=== PATIENT | female | born 1985 | race Caucasian/White ===

== ENCOUNTER 2020-08-26 03:31 | Emergency (ER) | payer OTHER, SELFPAY ==
[2020-08-26] MEDS ORDERED: NA CHLORIDE 0.9% 2,000 ML ONE (04:21)
[2020-08-26] MEDS ORDERED: ACETAMINOPHEN 325 MG TABLET ONE (04:21)
[2020-08-26] MEDS ORDERED: ONDANSETRON 4 MG/2 ML VIAL ONE (04:26)
[2020-08-26 04:29] LABS: Absolute Lymphocytes (CBC) 0.8 K/uL (0.7-4.9); Basophils % 0.2 % (0-1.3); Lymphocytes % 4.6 % (15.3-44.8); MPV 7.6 fL (7.6-11.3); RBC Red Blood Cell Count 4.62 M/uL (3.86-4.86)
[2020-08-26 04:31] LABS: Protime INR 1.22
[2020-08-26 05:14] LABS: Urine Blood 2+ (NEG); Urine Glucose NEGATIVE (NEG); Urine Protein 2+ (NEG); Urine Specific Gravity >1.030 (1.005-1.030); Urine pH 5.5 (5.0-7.0)
[2020-08-26] MEDS ORDERED: MORPHINE 2 MG/ML SYR ONE (05:55)
[2020-08-26 06:19] LABS: SARS-COV-2 RT PCR NEGATIVE (NEGATIVE)
[2020-08-26] MEDS ORDERED: CLINDAMYCIN 600MG/D5W 600 MG/50 ML BAG IV ONE (06:24)
[2020-08-26] MEDS ORDERED: dexAMETHasone 10 MG/ML VIAL ONE (06:24)
[2020-08-26 07:16] LABS: ALT/SGPT 25 U/L (12-78); AST/SGOT 16 U/L (15-37); Alkaline Phosphatase 95 U/L (45-117); Amylase 23 U/L (25-115); BUN Blood Urea Nitrogen 6 mg/dL (7-18); Bicarbonate 22 mmol/L (21-32); Bilirubin Direct 0.1 mg/dL (0-0.2); Bilirubin Total 0.3 mg/dL (0.2-1.0); CKMB Creatine Kinase MB < 1.0 ng/mL (0.3-3.6); Creatine Phosphokinase 49 U/L (26-192); Glucose Level 90 mg/dL (74-106); Lipase 43 U/L (73-393); Potassium 3.4 mmol/L (3.5-5.1); Protein, Total 6.4 g/dL (6.4-8.2); Sodium Level 139 mmol/L (136-145); Troponin (Emerg Dept Use Only) < 0.02 ng/mL (0.0-0.045)
--- NOTE | 2020-08-26 08:25 | RAD REPORT ---
EXAM DESCRIPTION: CT - Soft Tissue Neck W/Contr - 08/26/2020 7:42 am CLINICAL HISTORY: SORE THROAT, neck pain, fever COMPARISON: No comparisons TECHNIQUE: During dynamic enhancement using 100 milliliters nonionic IV contrast, axial 5 millimeter thick images of the neck were obtained. All CT scans are performed using dose optimization technique as appropriate and may include automated exposure control or mA/KV adjustment according to patient size. FINDINGS: Intracranial portion the examination is unremarkable. No globe or orbital content abnormal ity. Mastoid air cells are clear. No significant paranasal sinus finding. A low-density collection is present at the left tonsil extending inferiorly in the left posterior pha ryngeal soft tissues. Low-density collection extends into the left side of the epiglottis and involve s the left vallecula and pyriform sinus. This collection measures 5 cm in craniocaudal dimension with transverse diameter is up to 16 mm. There is mass effect displacing the left-side tonsil into the or opharyngeal airway. No significant luminal narrowing noted. No vocal cord abnormality seen. The peritonsillar low-density collection is not well defined but like ly represents a combination of abscess and phlegmonous material. No vascular abnormality. The parotid, submandibular and thyroid gland tissues are uninvolved. Patient has numerous small enhancing reactive cervical lymph nodes. No necrotic or abscessed lymph node iden tified. Largest lymph node is approximately 17 mm. No bony abnormality seen. IMPRESSION: Large 5 centimeter CC x 1.6 cm TR peritonsillar abscess extending inferiorly in the left posterior pharyngeal soft tissues to the level of the vallecula and pyriform sinus on the left.
--- NOTE | 2020-08-26 08:56 | EDPHYS ---
Physician Documentation [facility] Name: Inez Hernandez Age: 34 yrs Sex: Female : 1985 Arrival Date: 08/26/2020 Time: 03:32 Bed 18 Private MD: ED Physician Tyshawn Poe HPI: 08/26 04:54 This 34 yrs old Female presents to ER via Wheelchair with complaints of mh7 dehydration. 04:55 The patient presents with sore throat. The patient describes throat pain as constant. mh7 Onset: The symptoms/episode began/occurred 2 day(s) ago. Severity of symptoms: At their worst the symptoms were moderate, yesterday, in the emergency department the symptoms are unchanged. Modifying factors: The symptoms are alleviated by nothing, the symptoms are aggravated by nothing, Patient's oral intake status: limited fluid intake, Denies contact with similarly ill indivduals. Associated signs and symptoms: Pertinent positives: cough, nausea, Sore throat Pertinent negatives chest pain, chills, diarrhea, earache, fever, headache, rhinorrhea, shortness of breath, vomiting. 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 - Social history:: Smoking status: Patient reports the use of cigarette tobacco products. ROS: 04:55 Constitutional: Negative for fever, chills, and weight loss, Eyes: Negative for injury, mh7 pain, redness, and discharge, Neck: Negative for injury, pain, and swelling, Cardiovascular: Negative for chest pain, palpitations, and edema, : Negative for injury, bleeding, discharge, and swelling, MS/Extremity: Negative for injury and deformity, Skin: Negative for injury, rash, and discoloration, Neuro: Negative for headache, weakness, numbness, tingling, and seizure, Psych: Negative for depression, anxiety, suicide ideation, homicidal ideation, and hallucinations, Allergy/Immunology: Negative for hives, rash, and allergies, Endocrine: Negative for neck swelling, polydipsia, polyuria, polyphagia, and marked weight changes, Hematologic/Lymphatic: Negative for swollen nodes, abnormal bleeding, and unusual bruising. Exam: 04:55 Head/Face: Normocephalic, atraumatic. Eyes: Pupils equal round and reactive to light, mh7 extra-ocular motions intact. Lids and lashes normal. Conjunctiva and sclera are non-icteric and not injected. Cornea within normal limits. Periorbital areas with no swelling, redness, or edema. Neck: Trachea midline, no thyromegaly or masses palpated, and no cervical lymphadenopathy. Supple, full range of motion without nuchal rigidity, or vertebral point tenderness. No Meningismus. Chest/axilla: Normal chest wall appearance and motion. Nontender with no deformity. No lesions are appreciated. 04:55 Respiratory: Lungs have equal breath sounds bilaterally, clear to auscultation and percussion. No rales, rhonchi or wheezes noted. No increased work of breathing, no retractions or nasal flaring. Abdomen/GI: Soft, non-tender, with normal bowel sounds. No distension or tympany. No guarding or rebound. No evidence of tenderness throughout. Back: No spinal tenderness. No costovertebral tenderness. Full range of motion. Skin: Warm, dry with normal turgor. Normal color with no rashes, no lesions, and no evidence of cellulitis. MS/ Extremity: Pulses equal, no cyanosis. Neurovascular intact. Full, normal range of motion. Neuro: Awake and alert, GCS 15, oriented to person, place, time, and situation. Cranial nerves II-XII grossly intact. Motor strength 5/5 in all extremities. Sensory grossly intact. Cerebellar exam normal. Normal gait. Psych: Awake, alert, with orientation to person, place and time. Behavior, mood, and affect are within normal limits. 04:55 Constitutional: The patient appears in no acute distress, alert, awake, uncomfortable. 04:55 Cardiovascular: Rate: tachycardic, Rhythm: regular, Pulses: no pulse deficits are appreciated, Heart sounds: normal, normal S1and S2, Edema: is not appreciated. 06:51 ENT: External ear(s): are unremarkable, Nose: is normal, Mouth: is normal, Posterior mh7 pharynx: Airway: patent, Tonsils: bilaterally enlarged, with erythema, with exudate, Uvula: normal, swelling, that is mild, erythema, that is moderate, exudate, that is moderate, peritonsillar mass, is not appreciated, pooling of secretions, is not appreciated, Dental exam: normal, Voice: is normal, Breath odor: is normal. Vital Signs: 03:51 BP 132 / 86; Pulse 116; Resp 20; Temp 102.1; Pulse Ox 100% ; Weight 58.97 kg; Height 5 wh ft. 0 in. (152.40 cm); 06:14 BP 127 / 80; Pulse 116; Resp 18; Temp 99.8; Pulse Ox 100% on R/A; wh 07:05 BP 119 / 78; Pulse 108; Resp 17; Temp 98.1; Pulse Ox 98% ; Pain 6/10; rb3 08:05 BP 123 / 76; Pulse 90; Resp 18; Pulse Ox 100% ; rb3 09:50 BP 123 / 76; Pulse 89; Resp 16; Temp 98.9; Pulse Ox 99% ; rb3 10:50 BP 107 / 57; Pulse 89; Resp 17; Pulse Ox 99% ; rb3 03:51 Body Mass Index 25.39 (58.97 kg, 152.40 cm) MDM: 07:05 Patient medically screened. rn 08:53 ED course: Pt with large peritonsillar abscess, extends inferiorly, not accessible on rn exam to be drained in ER, no ENT here, will transfer for ENT drainage. . 08:55 Differential diagnosis: group A strep tonsillitis, peritonsillar abscess pharyngitis. rn Data reviewed: vital signs, nurses notes, lab test result(s), radiologic studies, CT scan, and as a result, I will admit patient. Counseling: I had a detailed discussion with the patient and/or guardian regarding: the historical points, exam findings, and any diagnostic results supporting the discharge/admit diagnosis, lab results, radiology results, the need to transfer to another facility, [facility] does not immediately have the required specialist. Response to treatment: There is no appreciated change of the patient's symptoms at this time, and as a result, I will admit patient. 08/26 03:55 Order name: Amylase, Serum [facility] 08/26 03:55 Order name: Basic Metabolic Panel [facility] 08/26 03:55 Order name: Blood Culture Adult (2) 08/26 03:55 Order name: CBC with Diff; Complete Time: 05:20 08/26 03:55 Order name: Ckmb 08/26 03:55 Order name: CPK 08/26 03:55 Order name: Lactate; Complete Time: 05:20 08/26 03:55 Order name: LFT's; Complete Time: 07:21 08/26 03:55 Order name: Lipase; Complete Time: 07:21 08/26 03:55 Order name: Procalcitonin; Complete Time: 05:20 08/26 03:55 Order name: Protime (+inr); Complete Time: 05:20 08/26 03:55 Order name: Ptt, Activated; Complete Time: 05:20 08/26 03:55 Order name: Troponin (emerg Dept Use Only); Complete Time: 07:21 08/26 03:55 Order name: Chest Single View XRAY; Complete Time: 19:22 08/26 03:55 Order name: Rapid Strep; Complete Time: 06:02 08/26 03:55 Order name: Harrison Screen Profile; Complete Time: 06:45 08/26 03:56 Order name: Amylase; Complete Time: 07:21 EDMS 08/26 03:56 Order name: Basic Metabolic Panel; Complete Time: 07:21 EDMS 08/26 03:57 Order name: CKMB Creatine Kinase MB; Complete Time: 07:21 EDMS 08/26 03:57 Order name: Creatine Phosphokinase; Complete Time: 07:21 EDMS 08/26 04:35 Order name: Glucose, Ancillary Testing; Complete Time: 05:20 EDMS 08/26 05:07 Order name: Urine --Ancillary (enter results); Complete Time: 05:20 tt3 08/26 05:07 Order name: Urine Dipstick--Ancillary (enter results); Complete Time: 05:20 tt3 08/26 06:19 Order name: COVID-19/FLU A+B; Complete Time: 06:45 EDMS 08/26 06:51 Order name: CT Soft Tissue Neck W/contr; Complete Time: 08:47 7 08/26 03:55 Order name: Accucheck; Complete Time: 04:19 08/26 03:55 Order name: Cardiac monitoring; Complete Time: 04:19 08/26 03:55 Order name: EKG - Nurse/Tech; Complete Time: 04:19 08/26 03:55 Order name: IV Saline Lock - Large Bore; Complete Time: 04:19 08/26 03:55 Order name: Labs collected and sent; Complete Time: 04:19 08/26 03:55 Order name: O2 Per Protocol; Complete Time: 04:08/26 03:55 Order name: O2 Sat Monitoring; Complete Time: 04:08/26 03:55 Order name: Urine Dipstick-Ancillary (obtain specimen); Complete Time: 05:07 7 Administered Medications: 04:18 Drug: NS 0.9% (30 ml/kg) 30 ml/kg Route: IV; Rate: bolus; Site: right antecubital; 06:44 Follow up: Response: No adverse reaction; IV Status: Completed infusion 04:18 Drug: Zofran (Ondansetron) 4 mg Route: IVP; Site: right antecubital; 05:06 Follow up: Response: No adverse reaction 04:37 Drug: Tylenol 650 mg Route: PO; 06:13 Follow up: Response: No adverse reaction; Temperature is decreased 05:42 Drug: morphine 2 mg {Note: RASS 0.} Route: IVP; Site: right antecubital; 06:13 Follow up: Response: No adverse reaction; Pain is decreased; RASS: Alert and Calm (0) 06:12 Drug: Decadron - Dexamethasone 10 mg Route: IVP; Site: right antecubital; 06:43 Follow up: Response: No adverse reaction 06:14 Drug: Clindamycin 600 mg Route: IVPB; Infused Over: 30 mins; Site: right antecubital; 06:43 Follow up: Response: No adverse reaction; IV Status: Completed infusion Disposition: 08/26/20 08:56 Transfer ordered to [facility]. Diagnosis are Peritonsillar abscess, Streptococcal tonsillitis. - Reason for transfer: Higher level of care. - Accepting physician is . - Condition is Stable. - Problem is new. - Symptoms are unchanged. Signatures: Dispatcher [employer] EDMS Tyshawn Poe MD MD rn Habalo, Winsy wh Holmes, Maurice, MD MD mh7 Sally Muñoz, RN RN rb3 Corrections: (The following items were deleted from the chart) 05:19 03:57 Influenza Screen (A \T\ B)+BA.LAB.BRZ ordered. EDMS EDMS 05:20 05:06 CORONAVIRUS+MR.LAB.BRZ ordered. EDMS EDMS 10:56 08:56 08/26/2020 08:56 Transfer ordered to [facility]. rb3 Diagnosis is Peritonsillar abscess; Streptococcal tonsillitis. Reason for transfer: Higher level of care. Accepting physician is . Condition is Stable. Problem is new. Symptoms are unchanged. rn
--- NOTE | 2020-08-26 08:56 | ER ---
Nurse's Notes [facility] Name: Inez Hernandez Age: 34 yrs Sex: Female : 1985 Arrival Date: 08/26/2020 Time: 03:32 Bed 18 Private MD: Diagnosis: Peritonsillar abscess;Streptococcal tonsillitis Presentation: 08/26 03:51 Chief complaint: Patient states: sore throat, nausea, back pain, fever for 2 days. Coronavirus screen: Client denies travel out of the [place] in the last 14 days. fever, headache, nausea, sore throat, Client presents with at least one sign or symptom that may indicate coronavirus-19. Standard/surgical mask placed on the client. Provider contacted for isolation considerations. Ebola Screen: Patient negative for fever greater than or equal to 101.5 degrees Fahrenheit, and additional compatible Ebola Virus Disease symptoms Patient denies exposure to infectious person. Initial Sepsis Screen: Does the patient meet any 2 criteria? Temp <36.0*C (96.8*F)) or > 38.3*C (100.9*F). HR > 90 bpm. Does the patient have a suspected source of infection? Yes: Other: Sore throat. Risk Assessment: Do you want to hurt yourself or someone else? Patient reports no desire to harm self or others. Onset of symptoms was August 26, 2020. 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 - Social history:: Smoking status: Patient reports the use of cigarette tobacco products. Screenin:54 Abuse screen: Denies threats or abuse. Denies injuries from another. Nutritional screening: No deficits noted. Tuberculosis screening: No symptoms or risk factors identified. Fall Risk None identified. Assessment: 04:19 General: Appears in no apparent distress. uncomfortable, Behavior is appropriate for age, crying. Pain: Complains of pain in sore throat. Neuro: Level of Consciousness is awake, alert, obeys commands, Oriented to person, place, time, situation, Appropriate for age. Cardiovascular: Capillary refill < 3 seconds. Respiratory: Airway is patent Respiratory effort is even, unlabored, Respiratory pattern is regular, symmetrical. GI: Abdomen is flat, non-distended. GI: Reports nausea. : No signs and/or symptoms were reported regarding the genitourinary system. EENT: Throat is reddened. Derm: Skin is intact, is healthy with good turgor, Skin is pink, warm \T\ dry. normal. Musculoskeletal: Circulation, motion, and sensation intact. 06:14 Reassessment: Patient appears in no apparent distress at this time. No changes from wh previously documented assessment. Patient and/or family updated on plan of care and expected duration. Pain level reassessed. Patient is alert, oriented x 3, equal unlabored respirations, skin warm/dry/pink. Patient states feeling better. Patient states symptoms have improved. 07:05 General: Appears in no apparent distress. Behavior is calm, cooperative. Pain: rb3 Complains of pain in throat Pain currently is 6 out of 10 on a pain scale. Neuro: Level of Consciousness is awake, alert, obeys commands, Oriented to person, place, time, situation. Cardiovascular: Patient's skin is warm and dry. Respiratory: Airway is patent Respiratory effort is even, unlabored, Respiratory pattern is regular, symmetrical. Musculoskeletal: Range of motion: intact in all extremities. 08:05 Reassessment: Patient appears in no apparent distress at this time. No changes from rb3 previously documented assessment. 09:00 Reassessment: Pt. resting with eyes closed, respirations even, unlabored. rb3 09:50 Reassessment: Patient appears in no apparent distress at this time. Patient and/or rb3 family updated on plan of care and expected duration. Pain level reassessed. Patient is alert, oriented x 3, equal unlabored respirations, skin warm/dry/pink. 09:55 Reassessment: Gave report to BRANDI Proctor at [facility]. Information from the [facility] was rb3 given. All questions asked and answered. 10:52 Reassessment: Patient appears in no apparent distress at this time. Patient and/or rb3 family updated on plan of care and expected duration. Pain level reassessed. Patient is alert, oriented x 3, equal unlabored respirations, skin warm/dry/pink. Gave report to [facility]. Information from the SB[facility] was given. All questions asked and answered. Vital Signs: 03:51 BP 132 / 86; Pulse 116; Resp 20; Temp 102.1; Pulse Ox 100% ; Weight 58.97 kg; Height 5 wh ft. 0 in. (152.40 cm); 06:14 BP 127 / 80; Pulse 116; Resp 18; Temp 99.8; Pulse Ox 100% on R/A; wh 07:05 BP 119 / 78; Pulse 108; Resp 17; Temp 98.1; Pulse Ox 98% ; Pain 6/10; rb3 08:05 BP 123 / 76; Pulse 90; Resp 18; Pulse Ox 100% ; rb3 09:50 BP 123 / 76; Pulse 89; Resp 16; Temp 98.9; Pulse Ox 99% ; rb3 10:50 BP 107 / 57; Pulse 89; Resp 17; Pulse Ox 99% ; rb3 03:51 Body Mass Index 25.39 (58.97 kg, 152.40 cm) ED Course: 03:32 Patient arrived in ED. am2 03:40 Regina Flores is Primary Nurse. 03:41 Nishant Delgado MD is Attending Physician. [facility] 03:54 Triage completed. 03:54 Patient has correct armband on for positive identification. Bed in low position. Call light in reach. Side rails up X 1. Pulse ox on. NIBP on. 03:55 Arm band placed on right wrist. 04:15 EKG done, by ED staff, reviewed by Nishant Delgado MD. Inserted saline lock: 18 gauge in ds4 right antecubital area, using aseptic technique. Blood collected. 04:47 Chest Single View XRAY In Process Unspecified. EDMS 07:05 Attending Physician role handed off by Nishant Delgado MD rn 07:05 Tyshawn Poe MD is Attending Physician. rn 07:42 CT Soft Tissue Neck W/contr In Process Unspecified. EDMS 08:56 initiated a transfer with Lupillo Iglesias Rn from the [facility]. eb 09:08 connected the ENT secured entrance monitor for [facility] with Dr. Poe for patient transfer eb consultation. 09:[address] Mueller the hospitalist secured entrance monitor for [facility] with Dr. Poe for eb patient transfer consultation. 09:29 administrative approval given by Lupillo Iglesias Rn/ patient has been accepted to [facility] rm 1618/ Dr. Mueller has accepted the patient in transfer/ report to be called to [phone]. 10:55 No provider procedures requiring assistance completed. Patient transferred, IV remains rb3 in place. Administered Medications: 04:18 Drug: NS 0.9% (30 ml/kg) 30 ml/kg Route: IV; Rate: bolus; Site: right antecubital; 06:44 Follow up: Response: No adverse reaction; IV Status: Completed infusion 04:18 Drug: Zofran (Ondansetron) 4 mg Route: IVP; Site: right antecubital; 05:06 Follow up: Response: No adverse reaction 04:37 Drug: Tylenol 650 mg Route: PO; 06:13 Follow up: Response: No adverse reaction; Temperature is decreased 05:42 Drug: morphine 2 mg {Note: RASS 0.} Route: IVP; Site: right antecubital; 06:13 Follow up: Response: No adverse reaction; Pain is decreased; RASS: Alert and Calm (0) 06:12 Drug: Decadron - Dexamethasone 10 mg Route: IVP; Site: right antecubital; 06:43 Follow up: Response: No adverse reaction 06:14 Drug: Clindamycin 600 mg Route: IVPB; Infused Over: 30 mins; Site: right antecubital; 06:43 Follow up: Response: No adverse reaction; IV Status: Completed infusion Outcome: 08:56 ER care complete, transfer ordered by rn 10:55 Transferred by ground EMS to [facility], Transfer form completed. rb3 10:55 Condition: stable 10:55 Instructed on the need for admit. 10:56 Patient left the ED. rb3 Signatures: Dispatcher [employer] EDTyshawn Goetz MD MD rn Swanson, Donovan ds4 Moreno, Amanda am2 Habalo, Winsy Yana Stiles Maurice, MD MD mh7 Sally Muñoz RN RN rb3 Corrections: (The following items were deleted from the chart) 06:14 04:19 General: [facility]
--- NOTE | 2020-08-26 09:29 | RAD REPORT ---
EXAM DESCRIPTION: RAD - Chest Single View - 08/26/2020 4:47 am CLINICAL HISTORY: COUGH, fever COMPARISON: None TECHNIQUE: AP portable chest image was obtained 08/26/2020 4:47 am . FINDINGS: Lungs are underinflated. No dense mass or consolidation. Hazy left base opacification is p robably atelectasis. Left base pneumonia is unlikely. Heart and vasculature are normal. No measurable pleural effusion and no pneumothorax. No acute bony abnormality seen. No acute aortic findings suspe cted. IMPRESSION: No acute cardiopulmonary process. Hazy opacification left base is probably shallow inspiration artifact. Pneumonia is unlikely but can be correlated with clinical and any lab findings.
[2020-08-26 11:06] VITALS: TEMP 98.9; O2SAT 99
[2020-08-26 11:07] VITALS: BP 107/57
--- NOTE | 2020-08-28 11:29 | EKG ---
Test Date: 2020-08-26 Test Time: 04:27:52 Plisse Machine Operator Helper: HILLARY MEASUREMENT RESULTS: Intervals: Rate: 117 NE: 142 QRSD: 94 QT: 318 QTc: 443 [place]: P: 57 NE: 142 QRS: 115 T: 49 INTERPRETIVE STATEMENTS: Sinus tachycardia Right axis deviation Incomplete right bundle branch block Abnormal ECG No previous ECG available for comparison Electronically Signed On 08-28-20 11:27:23 TOWEL FOLDER by Charlie Garvey
== END 2020-08-26 10:56 | disposition short-term general hospital (02) ==
LOC: ER 03:31
DX: J03.00 Acute streptococcal tonsillitis, unspecified (principal); F17.210 Nicotine dependence, cigarettes, uncomplicated
CPT/HCPCS: 0240U; 36415; 70491; 71045; 80048; 80076; 81003; 81025; 82150; 82550; 82553; 82947; 83605; 83690; 84145; 84484; 85025; 85610; 85730; 86308; 87040; 87081; 93005; 96365; 96375; 99285; J1100; J2270; J2405; J7030; Q9967

== ENCOUNTER 2020-11-07 09:03 | Emergency (ER) | payer SELFPAY ==
--- OUTSIDE RECORDS SUMMARY | 2020-11-07 09:06 | XMS REPORT | Continuity of Care Document ---
:1985 Author Organization [facility] t Address [address] [place] [address] Care Team Providers Name Role Phone Ashia MILLER Attending Clinician Berenice Montejo MD Attending Clinician ASHIA Attending Clinician Unavailable BERENICE MONTEJO Admitting Clinician Unavailable Problems Condition Condition Condition Status Onset Resolution Last Treating Co mments Source Name Details Category Date Date Treatment Clinician Date Peritonsil Peritonsil Disease Active C [facility] Allergies, Adverse Reactions, Alerts This patient has no known allergies or adverse reactions. Social History Social Habit Start Date Stop Date Quantity Comments Source Sex Assigned At [facility] Medications Ordered Filled Start Stop Current Ordering Indication Dosage Frequency Signature Comments Components Source Medication Medication Date Date Medication? Clinician (SIG) Name Name traMADoL 2020- No 100mg Take 2 [facility] 08-28 tablets Luke [facility] - mg tablet 00:00: 23:59 (100 mg Medi freddy 00 :00 total) by Center mouth every 6 (six) hours as needed for Pain for up to 10 days. Max Daily Amount: 400 mg amoxicillin 2020- No 1{tbl} [id number] Take [address] -clavulanat 08-28 [id number] tablet by Husam - e 00:00: 23:59 3D mouth 3 Medical (AUGMENTIN) 00 :00 (three) Cente r 500-125 mg times per tablet daily for 10 days. methylPREDN 2020- [facility] - (Medrol, 00:00: 23:59 directions Ok dicmanuela Suhail,) 4 mg 00 :00 . Center tablet Vital Signs Vital Name Observation Time Observation Value Comments Source Systolic blood 2020-08-28 11:32:00 91 mm[Hg] [facility] Diastolic blood 2020-08-28 11:32:00 55 mm[Hg] [facility] Heart rate 2020-08-28 11:32:00 85 /min [facility] Body temperature 2020-08-28 11:32:00 36.61 Suzanne [facility] Respiratory rate 2020-08-28 11:32:00 20 /min [facility] Oxygen saturation in 2020-08-28 11:32:00 98 /min [facility] Arterial blood by Medical Ce nter Pulse oximetry Body height 2020-08-26 19:50:00 152.4 cm [facility] Body weight 2020-08-26 19:50:00 61.825 kg [facility] BMI 2020-08-26 19:50:00 26.62 kg/m2 [facility] Procedures Procedure Date / Time Performed Performing Clinician [facility] e BASIC METABOLIC PANEL 2020-08-28 03:37:00 Julio César Montejo I [facility] - (7) [facility] CBC W/PLT COUNT & AUTO 2020-08-28 03:37:00 Julio César Montejo [facility] - DIFFERENTIAL [facility] BASIC METABOLIC PANEL 2020-08-27 04:09:00 Julio César Montejo CH I [facility] - (7) [facility] CBC W/PLT COUNT & AUTO 2020-08-27 04:09:00 Julio César Montejo [facility] - DIFFERENTIAL [facility] REPORT OF PROCEDURE - 2020-08-26 00:00:00 Provider, Default [facility] ENDOSCOPY SCAN [facility] Plan of Care Planned Activity Planned Date Details Comments Source Future Scheduled 2020-08-[address] [facility] - Test 00:00:00 (12+) [code = [facility] DEPRESSION SCREENING (12+)] Future Scheduled 2020-04-[address] [facility] - Test 00:00:00 (#1) [code = [facility] INFLUENZA VACCINE (#1)] Future Scheduled 2016-06-13 DTAP/TDAP/TD VACCINES [facility] - Test 00:00:00 (2 - Td) [code = [facility] ter DTAP/TDAP/TD VACCINES (2 - Td)] Future Scheduled 2008-10-[address] [facility] - Test 00:00:00 malignant neoplasm of Medica l Center cervix (procedure) [code = 109325514] Future Scheduled 2005-10-26 HEPATITIS C SCREENING [facility] - Test 00:00:00 [code = HEPATITIS C [facility] SCREENING] Results Test Description Test Time Test Comments Results Result Comments Source CBC with platelet count + automated diff 2020-08-28 04:23:00 Test Item Value Reference Range Interpretation Comme nts WBC (test code = 6690-2) 17.5 See_Comment H [A utomated message] The system which generated this result transmitted ref erence range: 3.5 - 10.5 K/L. T he reference range was not u sed to interpret this result as normal/abnormal. RBC (test code = 789-8) 4.13 See_Comment [Au tomated message] The system which generated this result transmitted ref erence range: 3.93 - 5.22 M/ L. The reference range was not u sed to interpret this result as normal/abnormal. MCHC (test code = 786-4) 33.0 See_Comment [A utomated message] The system which generated this result transmitted ref erence range: 32.2 - 35.5 GM/ DL. The reference range was not u sed to interpret this result as normal/abnormal. Hematocrit (test code = 35.1 % 34.1-44.9 4544-3) MCV (test code = 787-2) 85.0 fL 79.4-94.8 MCH (test code = 785-6) 28.1 pg 25.6-32.2 RDW (test code = 788-0) 13.7 % 11.7-14.4 Platelets (test code = 777-3) 271 See_Comment [Automated message] The system which generated this result transmitted ref erence range: 150 - 450 K/CU MM. The reference range was not u sed to interpret this result as normal/abnormal. MPV (test code = 34921-1) 9.3 fL 9.4-12.3 L nRBC (test code = 413) 0 See_Comment [Aut omated message] The system which generated this result transmitted ref erence range: 0 - 0 /100 WBC. The reference range was not used to interpret this result as devin l/abnormal. % Neutros (test code = 429) 88 % % Lymphs (test code = 430) 7 % % Monos (test code = 431) 5 % % Eos (test code = 432) 0 % % Baso (test code = 437) 0 % # Neutros (test code = 670) 15.39 See_Comment H [Automated message] The system which generated this result transmitted ref erence range: 1.56 - 6.13 K/ L. The reference range was not u sed to interpret this result as normal/abnormal. # Lymphs (test code = 414) 1.16 See_Comment L [Automated message] The system which generated this result transmitted ref erence range: 1.18 - 3.74 K/ L. The reference range was not u sed to interpret this result as normal/abnormal. # Monos (test code = 415) 0.80 See_Comment H [ Automated message] The system which generated this result transmitted ref erence range: 0.24 - 0.36 K/ L. The reference range was not u sed to interpret this result as normal/abnormal. # Eos (test code = 416) 0.00 See_Comment L [Au tomated message] The system which generated this result transmitted ref erence range: 0.04 - 0.36 K/ L. The reference range was not u sed to interpret this result as normal/abnormal. # Baso (test code = 417) 0.02 See_Comment [A utomated message] The system which generated this result transmitted ref erence range: 0.01 - 0.08 K/ L. The reference range was not u sed to interpret this result as normal/abnormal. Immature Granulocytes-Relative 1 % 0-1 (test code = 2801) Lab Interpretation (test code Abnormal = 27814-3) [facility] W/PLT COUNT & AUTO [id number] 04:23:00 Test Item Value Reference Range Interpretation Comments WHITE BLOOD CELL COUNT (BEAKER) 17.5 K/ L 3.5-10.5 H (test code = 775) RED BLOOD CELL COUNT (BEAKER) 4.13 M/ L 3.93-5.22 (test code = 761) HEMOGLOBIN (BEAKER) (test code = 11.6 GM/DL 11.2-15.7 410) HEMATOCRIT (BEAKER) (test code = 35.1 % 34.1-44.9 411) MEAN CORPUSCULAR VOLUME (BEAKER) 85.0 fL 79.4-94.8 (test code = 753) MEAN CORPUSCULAR HEMOGLOBIN 28.1 pg 25.6-32.2 (BEAKER) (test code = 751) MEAN CORPUSCULAR HEMOGLOBIN CONC 33.0 GM/DL 32.2-35.5 (BEAKER) (test code = 752) RED CELL DISTRIBUTION WIDTH 13.7 % 11.7-14.4 (BEAKER) (test code = 412) PLATELET COUNT (BEAKER) (test 271 K/CU MM 150-450 code = 756) MEAN PLATELET VOLUME (BEAKER) 9.3 fL 9.4-12.3 L (test code = 754) NUCLEATED RED BLOOD CELLS 0 /100 WBC 0-0 (BEAKER) (test code = 413) NEUTROPHILS RELATIVE PERCENT 88 % (BEAKER) (test code = 429) LYMPHOCYTES RELATIVE PERCENT 7 % (BEAKER) (test code = 430) MONOCYTES RELATIVE PERCENT 5 % (BEAKER) (test code = 431) EOSINOPHILS RELATIVE PERCENT 0 % (BEAKER) (test code = 432) BASOPHILS RELATIVE PERCENT 0 % (BEAKER) (test code = 437) NEUTROPHILS ABSOLUTE COUNT 15.39 K/ L 1.56-6.13 H (BEAKER) (test code = 670) LYMPHOCYTES ABSOLUTE COUNT 1.16 K/ L 1.18-3.74 L (BEAKER) (test code = 414) MONOCYTES ABSOLUTE COUNT (BEAKER) 0.80 K/ L 0.24-0.36 H (test code = 415) EOSINOPHILS ABSOLUTE COUNT 0.00 K/ L 0.04-0.36 L (BEAKER) (test code = 416) BASOPHILS ABSOLUTE COUNT (BEAKER) 0.02 K/ L 0.01-0.08 (test code = 417) IMMATURE GRANULOCYTES-RELATIVE 1 % 0-1 PERCENT (BEAKER) (test code = 2801) Basic Metabolic [id number] 04:22:00 Test Item Value Reference Range Interpretation Comments Sodium (test code = 143 meq/L 981-652 4964-2) Potassium (test code = 3.7 meq/L 3.5-5.1 2823-3) Chloride (test code = 111 meq/L 98-107 H 2075-0) CO2 (test code = 24 meq/L - 2028-9) BUN (test code = 15 mg/dL 7-21 3094-0) Creatinine (test code 0.64 mg/dL 0.57-1.25 = 2160-0) Glucose (test code = 130 mg/dL 70-105 H 2345-7) Calcium (test code = 8.5 mg/dL 8.4-10.2 34732-5) EGFR (test code = 108 mL/min/1.73 [place] [address]-5) NOT ACCURATE CREATININE CLEARANCE IN PREDICTING GLOMERULAR FILTRATION RATE . ESTIMATED GFR I S NOT APPLICABLE FOR DIALYSIS PATIENTS. ELGIN (test code = ELGIN) Night Order Selector ID - EDASI Lab Interpretation Abnormal (test code = 32831-7) [facility] MET[facility]OLIC [id number] 04:22:00 Test Item Value Reference Range Interpretation Comments SODIUM (BEAKER) 143 meq/L 136-145 (test code = 381) POTASSIUM (BEAKER) 3.7 meq/L 3.5-5.1 (test code = 379) CHLORIDE (BEAKER) 111 meq/L 98-107 H (test code = 382) CO2 (BEAKER) (test 24 meq/L - code = 355) BLOOD UREA NITROGEN 15 mg/dL 7-21 (BEAKER) (test code = 354) CREATININE (BEAKER) 0.64 mg/dL 0.57-1.25 (test code = 358) GLUCOSE RANDOM 130 mg/dL 70-105 H (BEAKER) (test code = 652) CALCIUM (BEAKER) 8.5 mg/dL 8.4-10.2 (test code = 697) EGFR (BEAKER) (test 108 mL/min/1.73 ESTIM ATED GFR IS code = 1092) sq m NOT ACCURATE CREATININE CLEARANCE IN PREDICTING GLOMERULAR FILTRATION RATE . ESTIMATED GFR I S NOT APPLICABLE FOR DIALYSIS PATIEN TS. Night Order Selector ID - EDASICBC W/PLT COUNT & AUTO [id number] 05:34:00 Test Item Value Reference Range Interpretation Comments WHITE BLOOD CELL COUNT (BEAKER) 17.6 K/ L 3.5-10.5 H (test code = 775) RED BLOOD CELL COUNT (BEAKER) 4.43 M/ L 3.93-5.22 (test code = 761) HEMOGLOBIN (BEAKER) (test code = 12.4 GM/DL 11.2-15.7 410) HEMATOCRIT (BEAKER) (test code = 37.8 % 34.1-44.9 411) MEAN CORPUSCULAR VOLUME (BEAKER) 85.3 fL 79.4-94.8 (test code = 753) MEAN CORPUSCULAR HEMOGLOBIN 28.0 pg 25.6-32.2 (BEAKER) (test code = 751) MEAN CORPUSCULAR HEMOGLOBIN CONC 32.8 GM/DL 32.2-35.5 (BEAKER) (test code = 752) RED CELL DISTRIBUTION WIDTH 13.5 % 11.7-14.4 (BEAKER) (test code = 412) PLATELET COUNT (BEAKER) (test 240 K/CU MM 150-450 code = 756) MEAN PLATELET VOLUME (BEAKER) 9.4 fL 9.4-12.3 (test code = 754) NUCLEATED RED BLOOD CELLS 0 /100 WBC 0-0 (BEAKER) (test code = 413) NEUTROPHILS RELATIVE PERCENT 91 % (BEAKER) (test code = 429) LYMPHOCYTES RELATIVE PERCENT 4 % (BEAKER) (test code = 430) MONOCYTES RELATIVE PERCENT 4 % (BEAKER) (test code = 431) EOSINOPHILS RELATIVE PERCENT 0 % (BEAKER) (test code = 432) BASOPHILS RELATIVE PERCENT 0 % (BEAKER) (test code = 437) NEUTROPHILS ABSOLUTE COUNT 16.08 K/ L 1.56-6.13 H (BEAKER) (test code = 670) LYMPHOCYTES ABSOLUTE COUNT 0.72 K/ L 1.18-3.74 L (BEAKER) (test code = 414) MONOCYTES ABSOLUTE COUNT (BEAKER) 0.66 K/ L 0.24-0.36 H (test code = 415) EOSINOPHILS ABSOLUTE COUNT 0.00 K/ L 0.04-0.36 L (BEAKER) (test code = 416) BASOPHILS ABSOLUTE COUNT (BEAKER) 0.02 K/ L 0.01-0.08 (test code = 417) IMMATURE GRANULOCYTES-RELATIVE 1 % 0-1 PERCENT (BEAKER) (test code = 2801) BASIC METABOLIC [id number] 05:13:00 Test Item Value Reference Range Interpretation Comments SODIUM (BEAKER) 141 meq/L 136-145 (test code = 381) POTASSIUM (BEAKER) 3.8 meq/L 3.5-5.1 (test code = 379) CHLORIDE (BEAKER) 109 meq/L 98-107 H (test code = 382) CO2 (BEAKER) (test 22 meq/L 22-29 code = 355) BLOOD UREA NITROGEN 12 mg/dL 7-21 (BEAKER) (test code = 354) CREATININE (BEAKER) 0.67 mg/dL 0.57-1.25 (test code = 358) GLUCOSE RANDOM 164 mg/dL 70-105 H (BEAKER) (test code = 652) CALCIUM (BEAKER) 8.8 mg/dL 8.4-10.2 (test code = 697) EGFR (BEAKER) (test 102 mL/min/1.73 ESTIM ATED GFR IS code = 1092) sq m NOT ACCURATE CREATININE CLEARANCE IN PREDICTING GLOMERULAR FILTRATION RATE . ESTIMATED GFR I S NOT APPLICABLE FOR DIALYSIS PATIEN TS. Night Order Selector ID - [id number] 00:00:00Ordered by an unspecified provider.[facility]
--- NOTE | 2020-11-07 10:03 | EDPHYS ---
Physician Documentation [facility] Name: Inez Hernandez Age: 35 yrs Sex: Female : 1985 Arrival Date: 11/07/2020 Time: 09:06 Bed 14 Private MD: ED Physician Tyshawn Poe HPI: 11/07 09:58 This 35 yrs old Female presents to ER via Ambulatory with complaints of STD [facility] Exposure. 09:58 The patient presents with STI exposure. Onset: The symptoms/episode began/occurred at [facility] an unknown time. Modifying factors: The symptoms are alleviated by nothing, the symptoms are aggravated by nothing. Associated signs and symptoms: Pertinent positives: vaginal bleeding, Pertinent negatives: fever, vomiting. This is a 35 year old female with no known medical conditions that presents to the ED with complaints of sti exposure, boyfriend tested positive for gonorrhea. Denies any dysuria, discharge, pain. Patient states having some abnormal spotting. Hx of tubal ligation. Historical: - Allergies: 09:34 No Known Allergies; hb ROS: 09:58 Constitutional: Negative for fever, chills, and weight loss, Cardiovascular: Negative jm for chest pain, palpitations, and edema, Respiratory: Negative for shortness of breath, cough, wheezing, and pleuritic chest pain, : Negative for injury, bleeding, discharge, and swelling, Neuro: Negative for headache, weakness, numbness, tingling, and seizure. 09:58 All other systems are negative. Exam: 09:58 Constitutional: This is a well developed, well nourished patient who is awake, alert, jmm and in no acute distress. Head/Face: atraumatic. Eyes: EOMI, no conjunctival erythema appreciated ENT: Moist Mucus Membranes Neck: Trachea midline, Supple Chest/axilla: Normal chest wall appearance and motion. Cardiovascular: Regular rate and rhythm. No edema appreciated Respiratory: Normal respirations, no respiratory distress appreciated Abdomen/GI: Non distended, soft Back: Normal ROM Skin: General appearance color normal MS/ Extremity: Moves all extremities, no obvious deformities appreciated, no edema noted to the lower extremities Neuro: Awake and alert, normal gait Psych: Behavior is normal, Mood is normal, Patient is cooperative and pleasant Vital Signs: 09:32 BP 129 / 86; Pulse 84; Resp 16; Temp 99(O); Pulse Ox 100% on R/A; Pain 0/10; hb MDM: 09:54 Patient medically screened. bee 10:00 Data reviewed: vital signs, nurses notes. Counseling: I had a detailed discussion with elise the patient and/or guardian regarding: the historical points, exam findings, and any diagnostic results supporting the discharge/admit diagnosis, the need for outpatient follow up, to return to the emergency department if symptoms worsen or persist or if there are any questions or concerns that arise at home. ED course: Patient declines pelvic exam. Will be treated due to exposure. Patient is otherwise given strict return precautions. Patient understood and agrees with the plan of care.. Administered Medications: 10:07 Drug: AZITHromycin 1 grams Route: PO; ll1 10:08 Drug: Rocephin (cefTRIAXone) 250 mg Route: IM; Site: right gluteus; ll1 Disposition: 11:17 Co-signature as Attending Physician, Tyshawn Poe MD. rn Disposition: 11/07/20 10:02 Discharged to Home. Impression: Contact with and (suspected) exposure to infections with a predominantly sexual mode of transmission. - Condition is Stable. - Discharge Instructions: Gonorrhea. - Medication Reconciliation Form, Thank You Letter, Antibiotic Education, Prescription Opioid Use form. - Follow up: Private Physician; When: 2 - 3 days; Reason: Recheck today's complaints, Continuance of care, Re-evaluation by your physician. Signatures: Raji Jeter PA PA jmm Nieto, Roman, MD MD rn Baxter, Heather, RN RN hb Lewis, Lynsay, RN RN ll1 Corrections: (The following items were deleted from the chart) 10:18 10:02 11/07/2020 10:02 Discharged to Home. Impression: Contact with and (suspected) hb exposure to infections with a predominantly sexual mode of transmission. Condition is Stable. Forms are Medication Reconciliation Form, Thank You Letter, Antibiotic Education, Prescription Opioid Use. Follow up: Private Physician; When: 2 - 3 days; Reason: Recheck today's complaints, Continuance of care, Re-evaluation by your physician. bee
--- NOTE | 2020-11-07 10:03 | ER ---
Nurse's Notes [facility] Name: Inez Hernandez Age: 35 yrs Sex: Female : 1985 Arrival Date: 11/07/2020 Time: 09:06 Bed 14 Private MD: Diagnosis: Contact with and (suspected) exposure to infections with a predominantly sexual mode of transmission Presentation: 11/07 09:32 Chief complaint: Boyfriend tested positing for gonorrhea yesterday, concerned she has hb been exposed. Denies any s/s. Coronavirus screen: At this time, the client does not indicate any symptoms associated with coronavirus-19. Ebola Screen: No symptoms or risks identified at this time. Initial Sepsis Screen: Does the patient meet any 2 criteria? No. Patient's initial sepsis screen is negative. Does the patient have a suspected source of infection? No. Patient's initial sepsis screen is negative. Risk Assessment: Do you want to hurt yourself or someone else? Patient reports no desire to harm self or others. Onset of symptoms was November 07, 2020. 09:32 Method Of Arrival: Ambulatory hb 09:32 Acuity: MEL 4 hb Historical: - Allergies: 09:34 No Known Allergies; hb Screenin:17 Abuse screen: Denies threats or abuse. Denies injuries from another. Nutritional hb screening: No deficits noted. Tuberculosis screening: No symptoms or risk factors identified. Fall Risk None identified. Vital Signs: 09:32 BP 129 / 86; Pulse 84; Resp 16; Temp 99(O); Pulse Ox 100% on R/A; Pain 0/10; hb ED Course: 09:06 Patient arrived in ED. mr 09:07 Raji Jeter PA is PHCP. jmm 09:07 Tyshawn Poe MD is Attending Physician. jmm 09:23 Raji Jeter PA is PHCP. jmm 09:23 Tyshawn Poe MD is Attending Physician. jmm 09:33 Triage completed. hb 09:34 Arm band placed on. hb 09:53 Yenny Puente, BRANDI is Primary Nurse. ll1 10:17 Patient has correct armband on for positive identification. hb 10:17 No provider procedures requiring assistance completed. Patient did not have IV access hb during this emergency room visit. Administered Medications: 10:07 Drug: AZITHromycin 1 grams Route: PO; ll1 10:08 Drug: Rocephin (cefTRIAXone) 250 mg Route: IM; Site: right gluteus; ll1 Outcome: 10:02 Discharge ordered by MD. olivarse 10:17 Discharged to home ambulatory. 10:17 Condition: stable 10:17 Discharge instructions given to patient, Instructed on discharge instructions, follow up and referral plans. Demonstrated understanding of instructions, follow-up care. 10:18 Patient left the ED. hb Signatures: Raji Jeter PA PA jmm Rivera, Mary mr Gilma Garrison, RN RN Yenny Newman RN RN ll1
[2020-11-07] MEDS ORDERED: LIDOCAINE 1% MPF 2 ML AMPULE ONE (10:17)
[2020-11-07] MEDS ORDERED: AZITHROMYCIN 1 GM PACKET ONE (10:17)
[2020-11-07] MEDS ORDERED: CEFTRIAXONE 250 MG/VIAL ONE (10:17)
[2020-11-07 10:22] VITALS: BP 129/86; TEMP 99; O2SAT 100
== END 2020-11-07 10:18 | disposition home or self-care (01) ==
LOC: ER 09:03
DX: Z20.2 Contact with and (suspected) exposure to infections with a predominantly sexual mode of transmission (principal)
CPT/HCPCS: 96372; 99283; J0696; J2001

== ENCOUNTER 2022-06-10 20:00 | Emergency (ER) | payer SELFPAY ==
--- OUTSIDE RECORDS SUMMARY | 2022-06-10 20:04 | XMS REPORT | Continuity of Care Document ---
:1985 Author Organization [facility] t Address [address] [place] [address] Care Team Providers Name Role Phone BHAVESH ANG Attending Clinician Unavailable BHAVESH ANG Admitting Clinician Unavailable NAM ACE Admitting Clinician Unavailable Problems Condition Condition Condition Status Onset Resolution Last Treating Co mments Source Name Details Category Date Date Treatment Clinician Date Peritonsil Peritonsil Disease Active [facility] Allergies, Adverse Reactions, Alerts Allergy Allergy Status Severity Reaction(s) Onset Inactive Treating Comm ents Source Name Type Date Date Clinician NO KNOWN Allergy Active [facility] ALLERGBARAK S Social History Social Habit Start Date Stop Date Quantity Comments Source Sex Assigned At [address] [facility] Medications This patient has no known medications. Vital Signs Vital Name Observation Time Observation Value Comments Source HEIGHT 2020-08-26 19:50:00 152.4 cm WEIGHT 2020-08-26 19:50:00 61.825 kg HEIGHT 2020-08-26 19:50:00 152.4 cm WEIGHT 2020-08-26 19:50:00 61.825 kg Procedures This patient has no known procedures. Plan of Care Planned Activity Planned Date Details Comments Source Future Scheduled 2026-05-16 DTAP/TDAP/TD VACCINES [facility] 00:[facility]:00 (2 - Td or Tdap) [facility] [code = DTAP/TDAP/TD VACCINES (2 - Td or Tdap)] Future Scheduled 2022-04-[address] [facility] 00:00:00 (#1) [code = [facility] INFLUENZA VACCINE (#1)] Future Scheduled 2021-08-[address] [facility] Test 00:00:00 (12+) [code = [facility] DEPRESSION SCREENING (12+)] Future Scheduled 2008-10-[address] [facility] 00:00[facility]00 [facility] cervix (procedure) [code = 177475328] Future Scheduled 2005-10-26 HEPATITIS C SCRE[facility]ING [facility] 00:00:00 [code = HEPATITIS [facility] Center SCREENING] Future Scheduled 1988-04-28 COVID-19 VACCINE (#1) [facility] 00:00:00 [code = COVID-19 Medical [facility] ter VACCINE (#1)] Encounters Start End Encounter Admission Attending Care Care Encounter Source Date/Time Date/Time Type Type Clinicians Facility Department ID 2020-08-26 Inpatient ER [facility], [facility] Otolaryngol [id number] [facility] 12:02:00 BHAVESH [facility] Results Test Description Test Time Test Comments Results Result Comments Source CBC W/PLT COUNT & AUTO DIFFERENTIAL 2020-08-28 04:23:00 Test Item Value Reference Range Interpretation Comme nts WHITE BLOOD CELL COUNT (BEAKER) (test code = 775) 17.5 K/ L 3.5- 10.5 H RED BLOOD CELL COUNT (BEAKER) (test code = 761) 4.13 M/ L 3.93-5 .22 HEMOGLOBIN (BEAKER) (test code = 410) 11.6 GM/DL 11.2-15.7 HEMATOCRIT (BEAKER) (test code = 411) 35.1 % 34.1-44.9 MEAN CORPUSCULAR VOLUME (BEAKER) (test code = 753) 85.0 fL 79. 4-94.8 MEAN CORPUSCULAR HEMOGLOBIN (BEAKER) (test code = 751) 28.1 pg 25.6-32.2 MEAN CORPUSCULAR HEMOGLOBIN CONC (BEAKER) (test code = 752) 33.0 GM/DL 32.2-35.5 RED CELL DISTRIBUTION WIDTH (BEAKER) (test code = 412) 13.7 % 11.7-14.4 PLATELET COUNT (BEAKER) (test code = 756) 271 K/CU MM 150-450 MEAN PLATELET VOLUME (BEAKER) (test code = 754) 9.3 fL 9.4-12 .3 L NUCLEATED RED BLOOD CELLS (BEAKER) (test code = 413) 0 /100 WBC 0 -0 NEUTROPHILS RELATIVE PERCENT (BEAKER) (test code = 429) 88 % LYMPHOCYTES RELATIVE PERCENT (BEAKER) (test code = 430) 7 % MONOCYTES RELATIVE PERCENT (BEAKER) (test code = 431) 5 % EOSINOPHILS RELATIVE PERCENT (BEAKER) (test code = 432) 0 % BASOPHILS RELATIVE PERCENT (BEAKER) (test code = 437) 0 % NEUTROPHILS ABSOLUTE COUNT (BEAKER) (test code = 670) 15.39 K/ L 1.56-6.13 H LYMPHOCYTES ABSOLUTE COUNT (BEAKER) (test code = 414) 1.16 K/ L 1.18-3.74 L MONOCYTES ABSOLUTE COUNT (BEAKER) (test code = 415) 0.80 K/ L 0. 24-0.36 H EOSINOPHILS ABSOLUTE COUNT (BEAKER) (test code = 416) 0.00 K/ L 0.04-0.36 L BASOPHILS ABSOLUTE COUNT (BEAKER) (test code = 417) 0.02 K/ L 0. 01-0.08 IMMATURE GRANULOCYTES-RELATIVE PERCENT (BEAKER) (test code 1 % 0-1 = 2801) BASIC METABOLIC [id number] 04:22:00 Test Item Value Reference Range Interpretation Comments SODIUM (BEAKER) 143 meq/L 136-145 (test code = 381) POTASSIUM (BEAKER) 3.7 meq/L 3.5-5.1 (test code = 379) CHLORIDE (BEAKER) 111 meq/L 98-107 H (test code = 382) CO2 (BEAKER) (test 24 meq/L 22-29 code = 355) BLOOD UREA NITROGEN 15 [...] S NOT APPLICABLE FOR DIALYSIS PATIEN TS. Urgent Care Physician Assistant ID - EDASICBC W/PLT COUNT & AUTO [id number] 05:34:00 Test Item Value Reference Range Interpretation [...] (BEAKER) (test code = 2801) BASIC METABOLIC [id number] 05:13:00 Test Item Value Reference Range Interpretation [...] S NOT APPLICABLE FOR DIALYSIS PATIEN TS. Urgent Care Physician Assistant ID - EDASI
--- NOTE | 2022-06-10 21:35 | RAD REPORT ---
EXAM DESCRIPTION: Felicia Single View06/10/2022 9:13 pm CLINICAL HISTORY: sob COMPARISON: 2020 FINDINGS: The lungs appear clear of acute infiltrate. The heart is normal size IMPRESSION: No acute abnormalities displayed
--- NOTE | 2022-06-10 22:22 | ER ---
Nurse's Notes [facility] Name: Inez Hernandez Age: 36 yrs Sex: Female : 1985 Arrival Date: 06/10/2022 Time: 20:04 Bed 30 Private MD: Diagnosis: Acute upper respiratory infection, unspecified Presentation: 06/10 20:19 Chief complaint: Patient states: she is having shortness of breath, body aches, cough, bb nausea, runny nose starting last night. Coronavirus screen: Client presents with at least one sign or symptom that may indicate coronavirus-19. Ebola Screen: No symptoms or risks identified at this time. Initial Sepsis Screen: Does the patient meet any 2 criteria? No. Patient's initial sepsis screen is negative. Does the patient have a suspected source of infection? No. Patient's initial sepsis screen is negative. Risk Assessment: Do you want to hurt yourself or someone else? Patient reports no desire to harm self or others. Onset of symptoms was June 09, 2022. 20:19 Method Of Arrival: Ambulatory 20:19 Acuity: MEL 3 bb Triage Assessment: 20:39 General: Behavior is cooperative, appropriate for age. em6 20:39 General: Appears comfortable. Respiratory: Onset: The symptoms/episode began/occurred em6 yesterday, the patient has moderate shortness of breath. Respiratory: Airway is patent Respiratory effort is even, unlabored, Respiratory pattern is regular, symmetrical, tachypnea Breath sounds are clear bilaterally. 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 - Social history:: Smoking status: Patient reports the use of cigarette tobacco products, Patient/guardian denies using alcohol, street drugs. Screenin:39 Abuse screen: Denies threats or abuse. Nutritional screening: No deficits noted. em6 Tuberculosis screening: No symptoms or risk factors identified. Fall Risk Total Orozco Fall Scale indicates No Risk (0-24 pts). Assessment: 20:39 General: Appears in no apparent distress. Pain: Denies pain. Neuro: Level of em6 Consciousness is awake, alert, obeys commands, Oriented to person, place, time, situation. Cardiovascular: Heart tones present Patient's skin is warm and dry. Respiratory: Reports shortness of breath cough that is productive, Airway is patent Respiratory effort is even, unlabored, Respiratory pattern is regular, symmetrical, tachypnea Breath sounds are clear bilaterally. GI: No signs and/or symptoms were reported involving the gastrointestinal system. : No signs and/or symptoms were reported regarding the genitourinary system. EENT: No signs and/or symptoms were reported regarding the EENT system. Derm: No signs and/or symptoms reported regarding the dermatologic system. Musculoskeletal: Circulation, motion, and sensation intact. 21:32 Cardiovascular: Rhythm is. em6 22:32 Reassessment: pt discharged but not in room for discharge instructions to be given. bb Vital Signs: 20:19 BP 123 / 89; Pulse 115; Resp 20 S; Temp 99(O); Pulse Ox 98% on R/A; Weight 68.04 kg bb (R); Height 5 ft. 0 in. (152.40 cm) (R); Pain 6/10; 21:30 BP 141 / 82; Pulse 100; Resp 18; Temp 98.2; Pulse Ox 97% on R/A; em6 20:19 Body Mass Index 29.29 (68.04 kg, 152.40 cm) bb ED Course: 20:04 Patient arrived in ED. am2 20:10 Pelon French PA is PHCP. cp 20:10 Pelon Vernon MD is Attending Physician. cp 20:21 Triage completed. bb 20:21 Arm band placed on Patient placed in an exam room, on a stretcher, on pulse oximetry. bb Family accompanied patient. 20:33 Garima Nguyen, RN is Primary Nurse. em6 20:39 Bed in low position. Call light in reach. Side rails up X2. Pulse ox on. NIBP on. Warm em6 blanket given. 21:15 XRAY Chest (1 view) In Process Unspecified. EDMS 21:29 Influenza Screen (a \\T\\ B) Sent. em6 21:29 COVID-19 SARS RT PCR (Document "Date of Onset" if Symptomatic) Sent. em6 21:42 Influenza Screen (a \\T\\ B) Sent. em6 21:42 COVID-19 SARS RT PCR (Document "Date of Onset" if Symptomatic) Sent. em6 22:30 No provider procedures requiring assistance completed. Patient did not have IV access em6 during this emergency room visit. Administered Medications: No medications were administered Medication: 22:30 VIS not applicable for this client. em6 Outcome: 22:22 Discharge ordered by MD. dempsey 22:30 Discharged to home em6 22:30 Condition: stable 22:30 Discharge instructions given to patient left without paper work 22:33 Patient left the ED. bb Signatures: Dispatcher [employer] EDMS Nayana Khan RN RN Pelon Bui PA PA cp Moreno, Amanda am2 Martinez, Erika RN RN em6 Corrections: (The following items were deleted from the chart) 22:33 22:32 Reassessment: pt discharged but not in room gloria castro
--- NOTE | 2022-06-10 22:22 | EDPHYS ---
Physician Documentation [facility] Name: Inez Hernandez Age: 36 yrs Sex: Female : 1985 Arrival Date: 06/10/2022 Time: 20:04 Bed 30 Private MD: ED Physician Pelon Vernno HPI: 06/10 21:15 This 36 yrs old Female presents to ER via Ambulatory with complaints of Shortness Of cp Breath. 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 - Social history:: Smoking status: Patient reports the use of cigarette tobacco products, Patient/guardian denies using alcohol, street drugs. ROS: 21:20 Constitutional: Positive for body aches, Negative for fever. cp 21:20 Eyes: Negative for injury, pain, redness, and discharge. cp 21:20 ENT: Negative for drainage from ear(s), ear pain, sore throat, difficulty swallowing, difficulty handling secretions. 21:20 Cardiovascular: Negative for chest pain, palpitations. 21:20 Respiratory: Positive for cough, shortness of breath, Negative for wheezing. 21:20 Abdomen/GI: Negative for abdominal pain, nausea, vomiting, and diarrhea. 21:20 Back: Negative for pain at rest, pain with movement. 21:20 Neuro: Negative for altered mental status, dizziness, headache, weakness. 21:20 All other systems are negative. Exam: 21:25 Constitutional: The patient appears in no acute distress, alert, awake, cp non-diaphoretic, non-toxic, well developed, well nourished. 21:25 Head/Face: Normocephalic, atraumatic. cp 21:25 Eyes: Periorbital structures: appear normal, Conjunctiva: normal, no exudate, no injection, Sclera: no appreciated abnormality, Lids and lashes: appear normal, bilaterally. 21:25 ENT: External ear(s): are unremarkable, Nose: is normal, Mouth: Lips: moist, Oral mucosa: pink and intact, moist, Posterior pharynx: Airway: no evidence of obstruction, patent, Tonsils: no enlargement, no erythema, no exudate, erythema, is not appreciated, exudate, is not appreciated. 21:25 Neck: ROM/movement: is normal, is supple, without pain, no range of motions limitations, no meningismus, Lymph nodes: no appreciated lymphadenopathy. 21:25 Chest/axilla: Inspection: normal. 21:25 Cardiovascular: Rate: tachycardic, Rhythm: regular, Edema: is not appreciated, JVD: is not appreciated. 21:25 Respiratory: the patient does not display signs of respiratory distress, Respirations: normal, no use of accessory muscles, no retractions, labored breathing, is not present, Breath sounds: are clear throughout, no decreased breath sounds, no stridor, no wheezing. 21:25 Abdomen/GI: Exam negative for discomfort, distension, guarding, Inspection: abdomen appears normal. 21:25 Back: pain, is absent, ROM is normal. 21:25 Skin: no rash present. 21:25 Neuro: Orientation: to person, place \\T\\ time. Mentation: is normal, Motor: moves all fours, strength is normal, Sensation: is normal. Vital Signs: 20:19 BP 123 / 89; Pulse 115; Resp 20 S; Temp 99(O); Pulse Ox 98% on R/A; Weight 68.04 kg bb (R); Height 5 ft. 0 in. (152.40 cm) (R); Pain 6/10; 21:30 BP 141 / 82; Pulse 100; Resp 18; Temp 98.2; Pulse Ox 97% on R/A; em6 20:19 Body Mass Index 29.29 (68.04 kg, 152.40 cm) bb MDM: 20:13 Patient medically screened. cp 22:22 Data reviewed: vital signs, nurses notes, lab test result(s), radiologic studies, plain cp films. 22:22 Differential diagnosis: Anxiety Reaction Chronic Obstructive Pulmonary Disease cp pneumonia, Pneumothorax pulmonary edema, Pulmonary Embolism. Antibiotic administration: Not indicated, the patient does not have an appreciated infiltrate. Test interpretation: by ED physician or midlevel provider: plain radiologic studies. Counseling: I had a detailed discussion with the patient and/or guardian regarding: the historical points, exam findings, and any diagnostic results supporting the discharge/admit diagnosis, lab results, radiology results, the need for outpatient follow up, a family practitioner, to return to the emergency department if symptoms worsen or persist or if there are any questions or concerns that arise at home. 06/10 21:02 Order name: COVID-19 SARS RT PCR (Document "Date of Onset" if Symptomatic); Complete cp Time: 22:20 06/10 22:20 Interpretation: Reviewed. cp 06/10 21: Order name: Influenza Screen (a \\T\\ B); Complete Time: 22:20 cp 06/10 22:20 Interpretation: Reviewed. cp 06/10 21: Order name: XRAY Chest (1 view); Complete Time: 22:20 cp 06/10 22:20 Interpretation: Report review. cp Administered Medications: No medications were administered Disposition Summary: 06/10/22 22:22 Discharge Ordered Location: Home cp Problem: new cp Symptoms: have improved cp Condition: Stable cp Diagnosis - Acute upper respiratory infection, unspecified cp Followup: cp - With: Private Physician - When: 2 - 3 days - Reason: Worsening of condition Discharge Instructions: - Discharge Summary Sheet cp - Viral Respiratory Infection cp Forms: - Medication Reconciliation Form cp - Thank You Letter cp - Antibiotic Education cp - Prescription Opioid Use cp Prescriptions: - albuterol sulfate 90 mcg/actuation Inhalation HFA aerosol inhaler - inhale 1 puff by INHALATION route every 4-6 hours; 1 Inhaler; Refills: 0, cp Product Selection Permitted - Tessalon Perles 100 mg Oral Capsule - take 1 capsule by ORAL route every 8 hours As needed; 15 capsule; Refills: 0, cp Product Selection Permitted Signatures: Dispatcher [employer] Nayana Castro RN RN Pelon Bui PA PA cp
[2022-06-10 23:41] VITALS: BP 141/82; TEMP 98.2; O2SAT 97
== END 2022-06-10 22:33 | disposition home or self-care (01) ==
LOC: ER 20:00
DX: J06.9 Acute upper respiratory infection, unspecified (principal); Z20.822 Contact with and (suspected) exposure to COVID-19; F17.210 Nicotine dependence, cigarettes, uncomplicated
CPT/HCPCS: 71045; 87804; 99283; U0003

== ENCOUNTER 2022-10-02 20:43 | Emergency (ER) | payer SELFPAY ==
--- OUTSIDE RECORDS SUMMARY | 2022-10-02 20:47 | XMS REPORT | Continuity of Care Document ---
:1985 Author Organization [facility] t Address [address] [place] [address] Care Team Providers Name Role Phone BHAVESH [...] Date Date Clinician NO KNOWN Allergy Active SLE ALLERGIE S Social History Social Habit Start Date Stop Date Quantity Comments Source Sex Assigned At [address] [facility] Medications This patient has no known medications. Vital Signs Vital Name Observation Time Observation Value Comments Source WEIGHT 2020-08-26 19:50:00 61.825 kg HEIGHT 2020-08-26 19:50:00 152.4 cm WEIGHT 2020-08-26 19:50:00 61.825 kg HEIGHT 2020-08-26 19:50:00 152.4 cm Procedures This patient has no known procedures. Plan of Care Planned Activity Planned Date Details Comments Source Future Scheduled 2026-05-16 DTAP/TDAP/TD [facility]ACCINES [facility] 00:[facility] (2 - Td or Tdap) [facility] [code = DTAP/TDAP/TD VACCINES (2 - Td or Tdap)] Future Scheduled 2026-05-16 DTAP/TDAP/TD [facility]ACCINES [facility] 00:00:00 (2 - Td or Tdap) [facility] [code = DTAP/TDAP/TD VACCINES (2 - Td or Tdap)] Future Scheduled 2022-08-[address] [facility] Test 00:00:00 (12+) [code = Medical Center DEPRESSION SCREENING (12+)] Future Scheduled 2022-04-[address] [facility] Test 00:00:00 (#1) [code = Medical Center INFLUENZA VACCINE (#1)] Future Scheduled 2022-04-[address] [facility] Test 00:00:00 (#1) [code = [facility] INFLUENZA VACCINE (#1)] Future Scheduled 2021-08-[address] [facility] Test 00:00:00 (12+) [code = Medical Center DEPRESSION SCREENING (12+)] Future Scheduled 2008-10-[address] [facility] 00:00:00 [facility] cervix (procedure) [code = 286913871] Future Scheduled 2008-10-[address] [facility] Test 00:00:00 [facility] cervix (procedure) [code = 157877268] Future Scheduled 2005-10-26 HEPATITIS C SCRE[facility]ING [facility] 00:00:00 [code = HEPATITIS C Medical Center SCREENING] Future Scheduled 2005-10-26 [facility]PATITIS C [facility]ING [facility] 00:00:00 [code = HEPATITIS C Medical Center SCREENING] Future Scheduled [address] [facility] Test 00:00:00 Counseling and Medical Cent[facility] r Screening (12+) [code = Tobacco Cessation Counseling and Screening (12+)] Future Scheduled 1988-04-28 COVID-19 VACCINE (#1) [facility] 00:00:00 [code = COVID-[address] VACCINE (#1)] Future Scheduled 1988-04-28 COVID-19 VACCINE (#1[facility] 00:00:00 [code = COVID-[address] VACCINE (#1)] Encounters Start End Encounter Admission Attending Care Care Encounter Source Date/Time Date/Time Type Type Clinicians Facility Department ID 2020-08-26 Inpatient ER [facility] Otolaryngol [id number] [facility] 12:02:00 BHAVEHS [facility] Results Test Description Test Time Test [...] 1 % 0-1 = 2801) BASIC METABOLIC [id number] 04:22:00 Test Item Value Reference Range Interpretation [...] S NOT APPLICABLE FOR DIALYSIS PATIEN TS. Paper Carrier ID - EDASICBC W/PLT COUNT & AUTO [id number] 05:34:00 Test Item Value Reference Range Interpretation [...] (BEAKER) (test code = 2801) BASIC METABOLIC [id number] 05:13:00 Test Item Value Reference Range Interpretation [...] S NOT APPLICABLE FOR DIALYSIS PATIEN TS. Paper Carrier ID - EDASI
[2022-10-02] MEDS ORDERED: ONDANSETRON 4 MG (ODT) TAB ONE (21:19)
[2022-10-02 22:17] LABS: SARS-COV-2 RT PCR NEGATIVE (NEGATIVE)
[2022-10-02] MEDS ORDERED: IBUPROFEN 400 MG TAB ONE (22:36)
[2022-10-02] MEDS ORDERED: LIDOCAINE VISCOUS 2% SOLN 15 ML UDC ONE (22:36)
[2022-10-02] MEDS ORDERED: AMOX/K CLAV 875 MG TAB ONE (22:37)
--- NOTE | 2022-10-02 22:43 | ER ---
Nurse's Notes [facility] Name: Inez Hernandez Age: 36 yrs Sex: Female : 1985 Arrival Date: 10/02/2022 Time: 20:48 Bed 12 Private MD: Diagnosis: Streptococcal tonsillitis;Nausea with vomiting, unspecified Presentation: 10/02 21:07 Chief complaint: Patient states: I went to work last night and my tonsils are so kd3 swollen. I cannot eat or drink. My chest hurts and my head hurts. I cannot keep anything down. I keep vomiting. I have a lot of congestion and body aches. Coronavirus screen: Vaccine status: Patient reports being unvaccinated. Ebola Screen: No symptoms or risks identified at this time. Initial Sepsis Screen:. 21:07 Method Of Arrival: Ambulatory kd3 21:09 Initial Sepsis Screen: Does the patient meet any 2 criteria? Temp <36.0*C (96.8*F)) or kd3 > 38.3*C (100.9*F). HR > 90 bpm. Yes Does the patient have a suspected source of infection? No. Patient's initial sepsis screen is negative. Risk Assessment: Do you want to hurt yourself or someone else? Patient reports no desire to harm self or others. Onset of symptoms was October 02, 2022. 21:09 Acuity: MEL 3 kd3 Triage Assessment: 21:11 General: Appears ill, Behavior is calm, cooperative. Pain: Complains of pain in kd3 headache, body aches, chest pain. EENT: Throat is reddened. 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 - Social history:: Smoking status: Reported history of juuling and/or vaping. Screenin:30 [facility] ED Fall Risk Assessment (Adult) History of falling in the last 3 months, 3 including since admission No falls in past 3 months (0 pts) Confusion or Disorientation No (0 pts) Intoxicated or Sedated No (0 pts) Impaired Gait No (0 pts) Mobility Assist Device Used No (0 pt) Altered Elimination No (0 pt) Score/Fall Risk Level 0 - 2 = Low Risk. Abuse screen: Denies threats or abuse. Denies injuries from another. Nutritional screening: No deficits noted. Tuberculosis screening: No symptoms or risk factors identified. Assessment: 22:30 General: Appears distressed, uncomfortable, Behavior is cooperative, appropriate for [facility] age, drowsy. Pain: Complains of pain in throat. Neuro: Level of Consciousness is awake, alert, obeys commands, Oriented to person, place, time, situation. Cardiovascular: Capillary refill < 3 seconds Patient's skin is warm and dry. Respiratory: Airway is patent Respiratory effort is even, unlabored, Respiratory pattern is regular, symmetrical, Breath sounds are clear bilaterally. GI: No signs and/or symptoms were reported involving the gastrointestinal system. Abdomen is round non-distended. : No signs and/or symptoms were reported regarding the genitourinary system. EENT: Throat is reddened has enlarged tonsils. Derm: Skin is pink, warm \T\ dry. Musculoskeletal: Circulation, motion, and sensation intact. Range of motion: intact in all extremities. Vital Signs: 21:06 Pulse 114; Resp 19; Temp 102.2(O); Pulse Ox 95% ; Weight 65.77 kg; Height 5 ft. (152.40 kd3 cm); 21:09 BP 130 / 86; kd3 21:52 Temp 99.8(O); kd3 22:30 BP 126 / 81; Pulse 97; Resp 18; Temp 100.1(O); Pulse Ox 98% on R/A; eh3 21:06 Body Mass Index 28.32 (65.77 kg, 152.40 cm) 3 ED Course: 20:48 Patient arrived in ED. ja2 21:01 Pelon French PA is PHCP. cp 21:01 Anil Kemp MD is Attending Physician. cp 21:09 Triage completed. kd3 21:11 Arm band placed on right wrist. kd3 21:19 COVID-19/FLU A+B Sent. kd3 21:19 Strep Sent. kd3 22:23 Mary Liang, RN is Primary Nurse. 3 22:30 Patient has correct armband on for positive identification. Bed in low position. Call [facility] light in reach. Side rails up X2. Adult w/ patient. Pulse ox on. NIBP on. Door closed. Noise minimized. Lights dimmed. 22:48 No provider procedures requiring assistance completed. Patient did not have IV access eh3 during this emergency room visit. 22:55 Primary Nurse role handed off by Mary Liang, BRANDI cp Administered Medications: 21:17 Drug: Zofran (Ondansetron) 4 mg Route: PO; kd3 22:24 Follow up: Response: Nausea is decreased eh3 22:39 Drug: Viscous Lidocaine Liquid (4 %) 5 ml Route: Mucous Membrane; eh3 22:40 Drug: Augmentin (Amoxicillin-Clavulanate) 875 mg Route: PO; eh3 22:40 Drug: Ibuprofen 800 mg Route: PO; eh3 Medication: 22:49 VIS not applicable for this client. eh3 Outcome: 22:42 Discharge ordered by . cp 22:49 Discharged to home ambulatory, with significant other. eh3 22:49 Condition: stable 22:49 Discharge instructions given to patient, significant other, Instructed on discharge instructions, follow up and referral plans. medication usage, Demonstrated understanding of instructions, follow-up care, medications, Prescriptions given X 3. 22:52 Patient left the ED. eh3 22:58 Patient left the ED. eh3 Signatures: Pelon French PA PA cp Alexander, Jessica ja2 Doucette, Kyli, RN RN kd3 Mary Liang, BRANDI RN eh3
--- NOTE | 2022-10-02 22:43 | EDPHYS ---
Physician Documentation [facility] Name: Inez Hernandez Age: 36 yrs Sex: Female : 1985 Arrival Date: 10/02/2022 Time: 20:48 Bed 12 Private MD: ED Physician Anil Kemp HPI: 10/02 21:15 This 36 yrs old Female presents to ER via Ambulatory with complaints of Sore Throat, cp Fever, Headache, Vomiting. 21:15 The patient presents with sore throat. cp 21:15 The patient describes throat pain as constant. cp 21:15 Onset: The symptoms/episode began/occurred yesterday. Modifying factors: the symptoms cp are aggravated by swallowing, Patient's oral intake status: limited fluid intake. Associated signs and symptoms: Pertinent positives: flu-like symptoms, headache, nausea, vomiting. 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 - Social history:: Smoking status: Reported history of juuling and/or vaping. ROS: 21:25 Constitutional: Positive for body aches, fever, poor PO intake, Negative for cp 21:25 Eyes: Negative for injury, pain, redness, and discharge. cp 21:25 ENT: Positive for difficulty swallowing, sore throat, Negative for drainage from ear(s), ear pain, difficulty swallowing, difficulty handling secretions. 21:25 Cardiovascular: Positive for chest pain, Negative for palpitations. 21:25 Respiratory: Positive for cough, with no reported sputum, Negative for shortness of breath, wheezing. 21:25 Abdomen/GI: Positive for nausea and vomiting, anorexia, Negative for diarrhea, constipation. 21:25 Skin: Negative for rash. 21:25 Neuro: Positive for headache, weakness. 21:25 All other systems are negative. Exam: 21:30 Constitutional: The patient appears in no acute distress, alert, awake, non-toxic, well cp developed, well nourished, uncomfortable. 21:30 Head/Face: Normocephalic, atraumatic. cp 21:30 Eyes: Periorbital structures: appear normal, Conjunctiva: normal, no exudate, no injection, Sclera: no appreciated abnormality, Lids and lashes: appear normal, bilaterally. 21:30 ENT: External ear(s): are unremarkable, Ear canal(s): are normal, clear, TM's: bulging, is not appreciated, bilaterally, dullness, bilaterally, erythema, is not appreciated, bilaterally, Nose: is normal, Mouth: Lips: moist, Oral mucosa: moist, Posterior pharynx: Airway: no evidence of obstruction, patent, Tonsils: bilaterally enlarged, with erythema, Uvula: midline, erythema, that is moderate, exudate, is not appreciated. 21:30 Neck: ROM/movement: is normal, is supple, no meningismus, no nuchal rigidity. 21:30 Chest/axilla: Inspection: normal. 21:30 Cardiovascular: Rate: tachycardic, Rhythm: regular. 21:30 Respiratory: the patient does not display signs of respiratory distress, Respirations: normal, no use of accessory muscles, no retractions, labored breathing, is not present, Breath sounds: are clear throughout, no decreased breath sounds, no stridor, no wheezing. 21:30 Abdomen/GI: Inspection: abdomen appears normal, Palpation: soft, in all quadrants, mild abdominal tenderness, in all quadrants. 21:30 Back: CVA tenderness, is absent. 21:30 Skin: no rash present. 21:30 Neuro: Orientation: to person, place \T\ time. Mentation: is normal, Motor: moves all fours, strength is normal. Vital Signs: 21:06 Pulse 114; Resp 19; Temp 102.2(O); Pulse Ox 95% ; Weight 65.77 kg; Height 5 ft. (152.40 kd3 cm); 21:09 BP 130 / 86; kd3 21:52 Temp 99.8(O); kd3 22:30 BP 126 / 81; Pulse 97; Resp 18; Temp 100.1(O); Pulse Ox 98% on R/A; eh3 21:06 Body Mass Index 28.32 (65.77 kg, 152.40 cm) kd3 MDM: 21:17 Patient medically screened. cp 22:00 Differential diagnosis: apthous stomatitis, group A strep tonsillitis, influenza, cp susan's angina, mononucleosis, peritonsillar abscess pharyngitis, retropharyngeal abcess tonsillitis, uvulitis. 22:42 Data reviewed: vital signs, nurses notes, lab test result(s). cp 22:42 Consideration of Admission/Observation Escalation of care including cp admission/observation considered. I considered the following discharge prescriptions or medication management in the emergency department Medications were administered in the Emergency Department. See MAR. Test considered but Not performed: CT: soft tissue neck. Counseling: I had a detailed discussion with the patient and/or guardian regarding: the historical points, exam findings, and any diagnostic results supporting the discharge/admit diagnosis, lab results, to return to the emergency department if symptoms worsen or persist or if there are any questions or concerns that arise at home. Response to treatment: the patient's symptoms have markedly improved after treatment, VSS. Nausea and pain improved. Patient tolerating po fluids and meds. Will discharge to home for continued monitoring. 10/02 21:13 Order name: COVID-19/FLU A+B; Complete Time: 22:23 cp 10/02 21:13 Order name: Strep; Complete Time: 22:23 cp 10/02 22:23 Interpretation: Reviewed. cp Administered Medications: 21:17 Drug: Zofran (Ondansetron) 4 mg Route: PO; kd3 22:24 Follow up: Response: Nausea is decreased eh3 22:39 Drug: Viscous Lidocaine Liquid (4 %) 5 ml Route: Mucous Membrane; eh3 22:40 Drug: Augmentin (Amoxicillin-Clavulanate) 875 mg Route: PO; eh3 22:40 Drug: Ibuprofen 800 mg Route: PO; eh3 Disposition: 10/03 00:16 Co-signature as Attending Physician, Anil Kemp MD I agree with the assessment and kdr plan of care. Disposition Summary: 10/02/22 22:42 Discharge Ordered Location: Home cp Problem: new cp Symptoms: have improved cp Condition: Stable cp Diagnosis - Streptococcal tonsillitis cp - Nausea with vomiting, unspecified cp Followup: cp - With: Private Physician - When: 2 - 3 days - Reason: Worsening of condition Discharge Instructions: - Discharge Summary Sheet cp - Nausea and Vomiting, Adult cp - Tonsillitis cp Forms: - Medication Reconciliation Form cp - Thank You Letter cp - Antibiotic Education cp - Prescription Opioid Use cp Prescriptions: - Augmentin 875-125 mg Oral Tablet - take 1 tablet by ORAL route every 12 hours for 10 days; 20 tablet; Refills: 0, cp Product Selection Permitted - Ibuprofen 800 mg Oral Tablet - take 1 tablet by ORAL route every 8 hours As needed take with food; 30 tablet; cp Refills: 0, Product Selection Permitted - Lidocaine Viscous - take 5 milliliter by ORAL route every 4-6 hours; 1 bottle; Refills: 0, Product cp Selection Permitted - Zofran 4 mg Oral Tablet - take 1 tablet by ORAL route every 12 hours As needed; 6 tablet; Refills: 0, cp Product Selection Permitted Signatures: Dispatcher [employer] EDAR Anil Kemp MD MD kdr Pelon French PA PA cp Doucette, Kyli RN RN kd3 Mary Liang RN RN eh3
[2022-10-02 23:30] VITALS: BP 126/81; TEMP 100.1; O2SAT 98
== END 2022-10-02 22:58 | disposition home or self-care (01) ==
LOC: ER 20:43
DX: J02.0 Streptococcal pharyngitis (principal); Z20.822 Contact with and (suspected) exposure to COVID-19
CPT/HCPCS: 0240U; 87081; Q0162

== ENCOUNTER 2022-10-05 10:20 | Emergency (ER) | payer SELFPAY ==
--- OUTSIDE RECORDS SUMMARY | 2022-10-05 10:23 | XMS REPORT | Continuity of Care Document ---
:1985 Author Organization [facility] t Address [address] [place] [address] Care Team Providers Name Role Phone BHAVESH [...] Date Date Clinician NO KNOWN Allergy Active [facility] ALLERGIE S Social History Social Habit Start [...] Medical Center DEPRESSION SCREENING (12+)] Future Scheduled 2022-08-[address] [facility] INFLUENZA VACCINE (#1)] Future Scheduled 2021-08-[address] [facility] Test 00:00:00 (12+) [code = Medical Center DEPRESSION SCREENING (12+)] Future Scheduled 2008-10-[address] [facility] Test 00:00:00 malignant neoplasm of [facility] cervix (procedure) [code = 165841058] Future Scheduled 2008-10-[address] [facility] Test 00:00:00 malignant ne[facility] cervix (procedure) [code = 238504992] Future Scheduled 2008-10-[address] [facility] Test 00:00:00 malignant ne[facility] of [facility] cervix (procedure) [code = 146024981] Future Scheduled 2005-10-26 HEPATITIS C SCREENING CH [...] Cessation Counseling and Screening (12+)] Future Scheduled [address] [...] Clinicians Facility Department ID 2020-08-26 [facility] Ot[facility] [id number] 12:02:00 BHAVESH [place] Results Test Description Test [...] 1 % 0-1 = 2801) BASIC METABOLIC [id number] 04:22:00 Test Item Value Reference Range Interpretation [...] S NOT APPLICABLE FOR DIALYSIS PATIEN TS. Herbologist ID - EDASICBC W/PLT COUNT & AUTO [id number] 05:34:00 Test Item Value Reference Range Interpretation [...] (BEAKER) (test code = 2801) BASIC METABOLIC [id number] 05:13:00 Test Item Value Reference Range Interpretation [...] S NOT APPLICABLE FOR DIALYSIS PATIEN TS. Herbologist ID - EDASI
[2022-10-05] MEDS ORDERED: dexAMETHasone 10 MG/ML VIAL ONE (10:51)
[2022-10-05] MEDS ORDERED: Ringers Lactate 1,000 ML IV ONE (10:51)
[2022-10-05] MEDS ORDERED: ONDANSETRON 4 MG/2 ML VIAL ONE (10:51)
[2022-10-05 11:52] LABS: Potassium 3.1 mmol/L (3.5-5.1)
--- NOTE | 2022-10-05 12:19 | EDPHYS ---
Physician Documentation [facility] Name: Inez Hernandez Age: 36 yrs Sex: Female : 1985 Arrival Date: 10/05/2022 Time: 10:21 Bed 7 Private MD: ED Physician Byron Kovacs HPI: 10/05 10:39 This 36 yrs old Female presents to ER via Ambulatory with complaints of Difficulty jmm Swallowing, Decreased Appetite, Nausea/Vomiting. 10:39 The patient presents with sore throat. Onset: The symptoms/episode began/occurred jmm gradually, 3 day(s) ago. Is a 36-year-old female with no chronic medical conditions the presents emerged part with complaints of sore throat beginning approximately 3 days ago. Patient is currently taking antibiotics but states she vomits the antibiotics soon as she swallows them. Denies any diarrhea. Patient was diagnosed with streptococcal pharyngitis. 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 - Social history:: Smoking status: Reported history of juuling and/or vaping. ROS: 10:39 Constitutional: Positive for body aches. jmm 10:39 ENT: Positive for sore throat. 10:39 Respiratory: Positive for 10:39 Abdomen/GI: Positive for vomiting. 10:39 All other systems are negative. Exam: 10:39 Constitutional: This is a well developed, well nourished patient who is awake, alert, jmm and in no acute distress. Head/Face: atraumatic. Eyes: EOMI, no conjunctival erythema appreciated 10:39 Neck: Trachea midline, Supple Chest/axilla: Normal chest wall appearance and motion. Cardiovascular: Regular rate and rhythm. No edema appreciated Respiratory: Normal respirations, no respiratory distress appreciated Abdomen/GI: Non distended Back: Normal ROM Skin: General appearance color normal MS/ Extremity: Moves all extremities, no obvious deformities appreciated, no edema noted to the lower extremities Neuro: Awake and alert Psych: Behavior is normal, Mood is normal, Patient is cooperative and pleasant 10:39 ENT: Posterior pharynx: Airway: normal, Tonsils: bilaterally enlarged, with erythema, Uvula: midline, erythema, that is moderate, peritonsillar mass, is not appreciated. Vital Signs: 10:23 BP 117 / 100; Pulse 108; Resp 18; Temp 97.7; Pulse Ox 99% on R/A; Weight 65.77 kg; iw Height 5 ft. 0 in. (152.40 cm); 10:59 BP 110 / 70; Pulse 88; Resp 18; ll1 11:36 BP 107 / 64; Pulse 90; Resp 17; ll1 10:23 Body Mass Index 28.32 (65.77 kg, 152.40 cm) iw MDM: 10:39 Patient medically screened. [facility] 12:18 Data reviewed: vital signs, nurses notes. I considered the following discharge [facility] prescriptions or medication management in the emergency department Medications were administered in the Emergency Department. See MAR. Counseling: I had a detailed discussion with the patient and/or guardian regarding: the historical points, exam findings, and any diagnostic results supporting the discharge/admit diagnosis, lab results, the need for outpatient follow up, to return to the emergency department if symptoms worsen or persist or if there are any questions or concerns that arise at home. ED course: Patient is alert nontoxic in appearance in the ED. Physical exam is not consistent with peritonsillar abscess. Will switch antibiotic due to the patient's inability to swallow the large Augmentin tablet. Patient otherwise given strict return precautions. Patient understood and agrees to plan of care.. 10/05 10:43 Order name: BMP; Complete Time: 11:52 [facility] 10/05 10:43 Order name: Saline Lock; Complete Time: 10:44 [facility] 10/05 11:08 Order name: Labs - recollect needed: recollect green top per topher hemolyzed; Complete eb Time: 11:16 Administered Medications: 10:58 Drug: Lactated Ringers Solution 1000 ml Route: IV; Rate: 1000 bolus; Site: right ll1 antecubital; 12:38 Follow up: IV Status: Completed infusion; IV Intake: 1000ml vg1 10:58 Drug: Ondansetron 4 mg Route: IVP; Site: right antecubital; ll1 12:38 Follow up: Response: No adverse reaction; Marked relief of symptoms vg1 10:58 Drug: Decadron - Dexamethasone 10 mg Route: IVP; Site: right antecubital; ll1 12:38 Follow up: Response: No adverse reaction vg1 Disposition: 14:36 Co-signature as Attending Physician, Byron Kovacs MD I reviewed the patient's care rt provided by the Advanced Practice Provider and agree with the diagnosis and treatment plan. Disposition Summary: 10/05/22 12:19 Discharge Ordered Location: Home [facility] Condition: Stable jmm Diagnosis - Vomiting [facility] Followup: [facility] - With: Private Physician - When: 2 - 3 days - Reason: Recheck today's complaints, Continuance of care, Re-evaluation by your physician Discharge Instructions: - Discharge Summary Sheet [facility] - Vomiting, Adult [facility] Forms: - Medication Reconciliation Form [facility] - Thank You Letter [facility] - Antibiotic Education [facility] - Prescription Opioid Use [facility] Prescriptions: - cefdinir 300 mg Oral capsule - take 1 capsule by ORAL route every 12 hours for 10 days; 20 capsule; Refills: [facility] 0, Product Selection Permitted - promethazine 12.5 mg Rectal suppository - insert 1 suppository by RECTAL route every 4-6 hours As needed; 20 suppository; jm Refills: 0, Product Selection Permitted Signatures: Dispatcher [employer] Raji Sexton PA PA jmm Williams, Irene, Yana Goddard RN, Lynsay, RN RN ll1 Byron Kovacs MD MD rt Garcia, Victoria RN vg1
--- NOTE | 2022-10-05 12:19 | ER ---
Nurse's Notes [facility]ly [facility] Name: Inez Hernandez Age: 36 yrs Sex: Female : 1985 Arrival Date: 10/05/2022 Time: 10:21 Bed 7 Private MD: Diagnosis: Vomiting Presentation: 10/05 10:23 Chief complaint: Patient states: was diagnosed with strep and started on abx, not iw getting better, unable to eat , can only swallow water with her pills. Coronavirus screen: At this time, the client does not indicate any symptoms associated with coronavirus-19. Ebola Screen: Patient negative for fever greater than or equal to 101.5 degrees Fahrenheit, and additional compatible Ebola Virus Disease symptoms Patient denies exposure to infectious person. Patient denies travel to an Ebola-affected area in the 21 days before illness onset. No symptoms or risks identified at this time. Initial Sepsis Screen: Does the patient meet any 2 criteria? HR > 90 bpm. Does the patient have a suspected source of infection?. Risk Assessment: Do you want to hurt yourself or someone else? Patient reports no desire to harm self or others. Onset of symptoms was October 02, 2022. 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 - Social history:: Smoking status: Reported history of juuling and/or vaping. Screenin:40 [facility] ED Fall Risk Assessment (Adult) Score/Fall Risk Level 0 - 2 = Low Risk ll1 Oriented to surroundings, Maintained a safe environment, Educated pt \T\ family on fall prevention, incl call for assistance when getting out of bed, Hourly rounding (assess needs \T\ fall precautionary measures) done. Abuse screen: Denies threats or abuse. Nutritional screening: No deficits noted. Tuberculosis screening: No symptoms or risk factors identified. Assessment: 10:40 Reassessment: No changes from previously documented assessment. HILARIO Muñoz at BS. ll1 10:58 General: Appears uncomfortable, ill, Behavior is cooperative, appropriate for age, ll1 restless. Pain: Complains of pain in throat Quality of pain is described as aching, throbbing. Neuro: Reports dizziness, weakness. GI: Abdomen is flat, dry heaves. EENT: Reports difficulty swallowing nasal congestion nasal discharge pain when swallowing. 11:25 Reassessment: No changes from previously documented assessment. Patient and/or family ll1 updated on plan of care and expected duration. Pain level reassessed. Patient is alert, oriented x 3, equal unlabored respirations, skin warm/dry/pink. 12:12 Reassessment: No changes from previously documented assessment. Linn RICH at . ll1 12:35 Reassessment: Patient appears in no apparent distress at this time. Patient and/or vg1 family updated on plan of care and expected duration. Pain level reassessed. Patient is alert, oriented x 3, equal unlabored respirations, skin warm/dry/pink. Vital Signs: 10:23 BP 117 / 100; Pulse 108; Resp 18; Temp 97.7; Pulse Ox 99% on R/A; Weight 65.77 kg; iw Height 5 ft. 0 in. (152.40 cm); 10:59 BP 110 / 70; Pulse 88; Resp 18; ll1 11:36 BP 107 / 64; Pulse 90; Resp 17; ll1 10:23 Body Mass Index 28.32 (65.77 kg, 152.40 cm) iw ED Course: 10:21 Patient arrived in ED. am2 10:25 Triage completed. iw 10:25 Arm band placed on. iw 10:27 Yenny Puente, BRANDI is Primary Nurse. ll1 10:27 Patient placed in an exam room, on a stretcher. ll1 10:37 Raji Jeter PA is PHCP. [facility] 10:37 Byron Kovacs MD is Attending Physician. jmm 10:40 Patient has correct armband on for positive identification. Bed in low position. Call ll1 light in reach. Side rails up X2. Client placed on continuous cardiac and pulse oximetry monitoring. NIBP monitoring applied. 10:50 Initial lab(s) drawn, by me, sent to lab. Inserted saline lock: 20 gauge in right vg1 antecubital area, using aseptic technique. Blood collected. 12:36 No provider procedures requiring assistance completed. IV discontinued, intact, vg1 bleeding controlled, No redness/swelling at site. Pressure dressing applied. Administered Medications: 10:58 Drug: Lactated Ringers Solution 1000 ml Route: IV; Rate: 1000 bolus; Site: right ll1 antecubital; 12:38 Follow up: IV Status: Completed infusion; IV Intake: 1000ml vg1 10:58 Drug: Ondansetron 4 mg Route: IVP; Site: right antecubital; ll1 12:38 Follow up: Response: No adverse reaction; Marked relief of symptoms vg1 10:58 Drug: Decadron - Dexamethasone 10 mg Route: IVP; Site: right antecubital; ll1 12:38 Follow up: Response: No adverse reaction vg1 Medication: 10:41 VIS not applicable for this client. ll1 Intake: 12:38 IV: 1000ml; Total: 1000ml. vg1 Outcome: 12:19 Discharge ordered by MD. olivares 12:36 Discharged to home ambulatory, with family. vg1 12:36 Condition: good 12:36 Discharge instructions given to patient, Instructed on discharge instructions, follow up and referral plans. medication usage, Demonstrated understanding of instructions, follow-up care, medications, Prescriptions given X 2. 12:37 Patient left the ED. vg1 Signatures: Raji Jeter PA PA jmm Williams, Irene, RN Zoe Parikh Victoria, RN RN vg1 Yenny Puente RN RN ll1
[2022-10-05 12:41] VITALS: TEMP 97.7; O2SAT 99
[2022-10-05 12:43] VITALS: BP 107/64
== END 2022-10-05 12:37 | disposition home or self-care (01) ==
LOC: ER 10:20
DX: R11.10 Vomiting, unspecified (principal); R07.0 Pain in throat
CPT/HCPCS: 36415; 80048; 96361; 96374; 96375; 99284; J1100; J2405; J7120

== ENCOUNTER 2022-10-18 14:12 | Day surgery (SDC) | payer SELFPAY ==
--- OUTSIDE RECORDS SUMMARY | 2022-10-18 14:17 | XMS REPORT | Continuity of Care Document ---
:1985 Author Organization [facility] t Address [address] [place] [address] Care Team Providers Name Role Phone BHAVESH [...] Sex Assigned At [address] [facility] 00:[facility]00 [facility]00 [facility] Medications This [...] [facility] Test 00:00:00 (#1) [code = [facility] Center INFLUENZA VACCINE (#1)] Future Scheduled 2022-04-18 [...] [facility] cervix (procedure) [code = 349923322] Future Scheduled 2008-10-[address] [facility] Test 00:00:00 malignant neoplasm of [facility] cervix (procedure) [code = 975851997] Future Scheduled 2008-10-[address] [facility] Test 00:00:00 [facility] cervix (procedure) [code = 534007422] Future Scheduled 2008-10-[address] [facility] Test 00:00:00 [facility] cervix (procedure) [code = 192880694] Future Scheduled 2005-10-26 HEPATITIS C SCREENING CH [...] Facility Department ID 2020-08-26 Inpatient ER [facility] Otolaryngol [id number] [facility] 12:02:00 BHAVESH o Results Test Description Test Time Test Comments [...] 1 % 0-1 = 2801) BASIC METABOLIC [id number] 04:22:00 Test Item Value Reference Range Interpretation [...] S NOT APPLICABLE FOR DIALYSIS PATIEN TS. Scheduler ID - EDASICBC W/PLT COUNT & AUTO [id number] 05:34:00 Test Item Value Reference Range Interpretation [...] (BEAKER) (test code = 2801) BASIC METABOLIC [id number] 05:13:00 Test Item Value Reference Range Interpretation [...] S NOT APPLICABLE FOR DIALYSIS PATIEN TS. Scheduler ID - EDASI
[2022-10-18] MEDS ORDERED: dexAMETHasone 10 MG/ML VIAL ONE ×2 (14:39→19:48)
[2022-10-18] MEDS ORDERED: NA CHLORIDE 0.9% 1,000 ML ONE ×2 (14:39→16:10)
[2022-10-18 15:23] LABS: Absolute Lymphocytes (CBC) 1.3 K/uL (0.7-4.9); Albumin 3.1 g/dL (3.4-5.0); Bilirubin Total 0.8 mg/dL (0.2-1.0); Hematocrit 32.3 % (36.0-45.0); Lymphocytes % 9.7 % (15.3-44.8); MPV 6.9 fL (7.6-11.3); Potassium 3.3 mmol/L (3.5-5.1); Protein, Total 7.4 g/dL (6.4-8.2); RBC Red Blood Cell Count 3.89 M/uL (3.86-4.86)
[2022-10-18] MEDS ORDERED: FENTANYL CITR 100 MCG/2 ML ONE ×2 (15:40→19:22)
--- NOTE | 2022-10-18 17:21 | RAD REPORT ---
EXAM DESCRIPTION: CT - Soft Tissue Neck W/Contr - 10/18/2022 5:09 pm CLINICAL HISTORY: Neck pain with sore throat COMPARISON: 2020 TECHNIQUE: Computed axial tomography of the neck was obtained. 95 cc Isovue 300 was administered in travenously. Coronal and sagittal reconstruction was performed. All CT scans are performed using dose optimization technique as appropriate and may include automated exposure control or mA/KV adjustment according to patient size. FINDINGS: The right tonsil is enlarged. There is a 2.5 centimeter peritonsillar abscess. Mild narrow ing of the airway The remainder of the pharynx, tongue base, larynx and subglottic trachea appear unremarkable The parotid, submandibular and thyroid glands appear unremarkable. Mild lymphadenopathy probably reactive in nature IMPRESSION: Right tonsillitis with 2.5 centimeter peritonsillar abscess
[2022-10-18] MEDS ORDERED: CLINDAMYCIN 600MG/D5W 50 ML IV ONE (18:08)
--- NOTE | 2022-10-18 18:20 | EDPHYS ---
Physician Documentation [facility] Name: Inez Hernandez Age: 36 yrs Sex: Female : 1985 Arrival Date: 10/18/2022 Time: 14:14 Bed 19 Private MD: ED Physician Dwayne Rajan HPI: 10/18 14:27 This 36 yrs old Female presents to ER via Ambulatory with complaints of Sore Throat, snw Congestion, Ear Pain - right. 14:27 The patient presents with sore throat. The patient describes throat pain as constant, snw raw, suffocating. Onset: The symptoms/episode began/occurred 3 day(s) ago, and became worse and became persistent. Associated signs and symptoms: Pertinent positives: right ear pain. pt states she was treated for strep 2 weeks ago, finished abx. Historical: - Allergies: 14:26 No Known Allergies; ld1 - Home Meds: 14:26 None [Active]; ld1 - PMHx: 14:26 None; ld1 - PSHx: 14:26 section; ld1 - Immunization history:: Adult Immunizations up to date, Client reports receiving the 2nd dose of the Covid vaccine. - Social history:: Smoking status: Patient denies any tobacco usage or history of. Patient/guardian denies using alcohol. ROS: 14:27 Constitutional: Negative for fever, chills, and weight loss, Eyes: Negative for injury, snw pain, redness, and discharge, Neck: Negative for injury, pain, and swelling, Cardiovascular: Negative for chest pain, palpitations, and edema, Respiratory: Negative for shortness of breath, cough, wheezing, and pleuritic chest pain, Abdomen/GI: Negative for abdominal pain, nausea, vomiting, diarrhea, and constipation, Back: Negative for injury and pain, : Negative for injury, bleeding, discharge, and swelling, MS/Extremity: Negative for injury and deformity, Skin: Negative for injury, rash, and discoloration, Neuro: Negative for headache, weakness, numbness, tingling, and seizure. 14:27 ENT: Positive for ear pain, sore throat, unable to open mouth. Exam: 14:25 Head/Face: Normocephalic, atraumatic. Eyes: Pupils equal round and reactive to light, snw extra-ocular motions intact. Lids and lashes normal. Conjunctiva and sclera are non-icteric and not injected. Cornea within normal limits. Periorbital areas with no swelling, redness, or edema. 14:25 Neck: Trachea midline, no thyromegaly or masses palpated, and no cervical lymphadenopathy. Supple, full range of motion without nuchal rigidity, or vertebral point tenderness. No Meningismus. Chest/axilla: Normal chest wall appearance and motion. Nontender with no deformity. No lesions are appreciated. Cardiovascular: Regular rate and rhythm with a normal S1 and S2. No gallops, murmurs, or rubs. Normal PMI, no JVD. No pulse deficits. Respiratory: Lungs have equal breath sounds bilaterally, clear to auscultation and percussion. No rales, rhonchi or wheezes noted. No increased work of breathing, no retractions or nasal flaring. Abdomen/GI: Soft, non-tender, with normal bowel sounds. No distension or tympany. No guarding or rebound. No evidence of tenderness throughout. Back: No spinal tenderness. No costovertebral tenderness. Full range of motion. Skin: Warm, dry with normal turgor. Normal color with no rashes, no lesions, and no evidence of cellulitis. MS/ Extremity: Pulses equal, no cyanosis. Neurovascular intact. Full, normal range of motion. Neuro: Awake and alert, GCS 15, oriented to person, place, time, and situation. Cranial nerves II-XII grossly intact. Motor strength 5/5 in all extremities. Sensory grossly intact. Cerebellar exam normal. Normal gait. 14:25 Constitutional: The patient appears alert, awake, anxious, uncomfortable. 14:25 ENT: TM's: erythema, that is mild, bilaterally, Nose: is normal, Mouth: unable to open mouth, Posterior pharynx: erythema, that is moderate, fullness. 14:25 Psych: tearful. Vital Signs: 14:24 BP 141 / 99; Pulse 98; Resp 18; Temp 97.7(O); Pulse Ox 99% on R/A; Weight 65.77 kg; ld1 Height 5 ft. 0 in. (152.40 cm); Pain 9/10; 14:45 BP 124 / 77; Pulse 87; Resp 20; Pulse Ox 98% on R/A; ko1 15:30 BP 121 / 77; Pulse 88; Resp 18; Pulse Ox 97% ; ko1 16:00 BP 116 / 77; Pulse 92; Resp 18; Pulse Ox 98% ; ko1 16:30 BP 117 / 80; Pulse 92; Resp 18; Pulse Ox 97% ; ko1 17:00 BP 132 / 85; Pulse 88; Resp 16; Pulse Ox 98% ; ko1 18:00 BP 116 / 74; Pulse 92; Resp 16; Pulse Ox 98% ; ko1 14:24 Body Mass Index 28.32 (65.77 kg, 152.40 cm) ld1 MDM: 14:18 Patient medically screened. 7 14:28 Differential diagnosis: apthous stomatitis, apthous ulcer, epiglottitis, group A strep snw tonsillitis, mononucleosis, peritonsillar abscess retropharyngeal abcess. Data reviewed: vital signs, nurses notes. Counseling: I had a detailed discussion with the patient and/or guardian regarding: the historical points, exam findings, and any diagnostic results supporting the discharge/admit diagnosis, the presence of at least one elevated blood pressure reading (>120/80) during this emergency department visit, lab results, radiology results. 14:29 ED course: reports completing Augmentin rx. snw 18:09 Management of patient was discussed with the following: Brass Cleaner: Dr. Luciano at around snw [address] scan. Pt returned from CT with dx INCIDENT RESPONSE ANALYST 2.5cm to right. Pt states she is feeling a little better. Dr. Luciano will come to hospital and take pt to OR for I\T\D. Pt voiced understanding and is in agreement with plan of care. Julio C (Hosp Fire Control Technician B) notified of need to call in OR crew. Consent at bedside with RN. 10/18 14:25 Order name: CBC with Diff snw 10/18 14:25 Order name: CMP snw 10/18 14:25 Order name: IV Saline Lock; Complete Time: 14:52 snw 10/18 14:25 Order name: Labs collected and sent; Complete Time: 14:52 snw 10/18 14:25 Order name: CT Soft Tissue Neck W/contr snw 10/18 14:25 Order name: Test, Serum snw 10/18 15:23 Order name: Comprehensive Metabolic Panel; Complete Time: 15:25 EDMS 10/18 15:26 Order name: CBC with Automated Diff; Complete Time: 15:27 EDMS 10/18 16:35 Order name: Test Serum, Qualitat; Complete Time: 16:46 EDMS 10/18 17:23 Order name: CT; Complete Time: 17:36 EDMS 10/18 18:51 Order name: SARS RAPID eb Administered Medications: 14:52 Drug: NS 0.9% 1000 ml Route: IV; Rate: 1 bolus; Site: right antecubital; ko1 14:52 Drug: Decadron - Dexamethasone 10 mg Route: IVP; Site: right antecubital; ko1 15:38 Drug: fentaNYL (PF) 25 mcg Route: IVP; Site: right antecubital; ko1 18:04 Drug: Clindamycin 600 mg Route: IVPB; Infused Over: 30 mins; Site: right antecubital; ko1 Disposition: 15:34 Co-signature as Attending Physician, Dwayne Rajan DO I was immediately available on-site ms3 in the Emergency Department for consultation in the care of the patient. Disposition Summary: 10/18/22 18:19 Hospitalization Ordered Hospitalization Status: Observation snw Provider: Katlyn Luciano Location: Operating Room snw Condition: Stable snw Problem: new snw Symptoms: are unchanged snw Bed/Room Type: Standard snw Room Assignment: snw Diagnosis - Peritonsillar abscess - 2.5 cm right snw Discharge Instructions: - Discharge Summary Sheet ko1 Forms: - Medication Reconciliation Form snw - SBAR form ko1 Signatures: Dispatcher [employer] EDIzabela Martinez FNP-C CLINICAL NURSING COORDINATOR-CsnDwayne Santizo DO DO ms3 Scarlet Bryant, RN RN ld1 Cortney Davidson FNP CLINICAL NURSING COORDINATOR jh7 Erica Wilder, RN RN ko1
--- NOTE | 2022-10-18 18:20 | ER ---
Nurse's Notes [facility] Name: Inez Hernandez Age: 36 yrs Sex: Female : 1985 Arrival Date: 10/18/2022 Time: 14:14 Bed 19 Private MD: Diagnosis: Peritonsillar abscess-2.5 cm right Presentation: 10/18 14:24 Chief complaint: Patient states: Possible peritonsillar abscess - redness to back of ld1 throat. Coronavirus screen: At this time, the client does not indicate any symptoms associated with coronavirus-19. Ebola Screen: No symptoms or risks identified at this time. Initial Sepsis Screen: Does the patient meet any 2 criteria? No. Patient's initial sepsis screen is negative. Does the patient have a suspected source of infection? No. Patient's initial sepsis screen is negative. Risk Assessment: Do you want to hurt yourself or someone else? Patient reports no desire to harm self or others. Onset of symptoms was October 18, 2022. 14:24 Method Of Arrival: Ambulatory ld1 14:24 Acuity: MEL 3 ld1 Triage Assessment: 14:26 General: Appears in no apparent distress. comfortable, Behavior is calm, cooperative, ld1 appropriate for age. Pain: Denies pain. Complains of pain in uvula, left aspect of posterior pharynx and right aspect of posterior pharynx Pain does not radiate. Pain currently is 9 out of 10 on a pain scale. EENT: Reports pain in mouth. Neuro: Level of Consciousness is awake, alert, obeys commands, Oriented to person, place, time, situation. Respiratory: Airway is patent Respiratory effort is even, unlabored. Historical: - Allergies: 14:26 No Known Allergies; ld1 - Home Meds: 14:26 None [Active]; ld1 - PMHx: 14:26 None; ld1 - PSHx: 14:26 section; ld1 - Immunization history:: Adult Immunizations up to date, Client reports receiving the 2nd dose of the Covid vaccine. - Social history:: Smoking status: Patient denies any tobacco usage or history of. Patient/guardian denies using alcohol. Screenin:30 [facility] ED Fall Risk Assessment (Adult) History of falling in the last 3 months, ko1 including since admission No falls in past 3 months (0 pts) Confusion or Disorientation No (0 pts) Intoxicated or Sedated No (0 pts) Impaired Gait No (0 pts) Mobility Assist Device Used No (0 pt) Altered Elimination No (0 pt) Score/Fall Risk Level 0 - 2 = Low Risk Oriented to surroundings, Maintained a safe environment, Educated pt \T\ family on fall prevention, incl call for assistance when getting out of bed, Assessed \T\ reinforced patient's understanding of fall precautions, Provided non-skid footwear, Hourly rounding (assess needs \T\ fall precautionary measures) done, Used ambulatory aids as needed (educated on \T\ assisted with), Used gait belt as appropriate. Abuse screen: Denies threats or abuse. Denies injuries from another. Nutritional screening: No deficits noted. Tuberculosis screening: No symptoms or risk factors identified. Assessment: 14:30 General: Appears distressed, uncomfortable, ill, Behavior is cooperative, appropriate ko1 for age. Pain: Complains of pain in mouth and right aspect of posterior pharynx and left aspect of posterior pharynx and uvula. Neuro: No deficits noted. Cardiovascular: No deficits noted. Respiratory: Airway is patent Trachea midline Respiratory effort is even, unlabored, Respiratory pattern is regular, Breath sounds are clear bilaterally. GI: No deficits noted. : No deficits noted. EENT: Throat is reddened has enlarged tonsils. Derm: No deficits noted. Musculoskeletal: No deficits noted. Vital Signs: 14:24 BP 141 / 99; Pulse 98; Resp 18; Temp 97.7(O); Pulse Ox 99% on R/A; Weight 65.77 kg; ld1 Height 5 ft. 0 in. (152.40 cm); Pain 9/10; 14:45 BP 124 / 77; Pulse 87; Resp 20; Pulse Ox 98% on R/A; ko1 15:30 BP 121 / 77; Pulse 88; Resp 18; Pulse Ox 97% ; ko1 16:00 BP 116 / 77; Pulse 92; Resp 18; Pulse Ox 98% ; ko1 16:30 BP 117 / 80; Pulse 92; Resp 18; Pulse Ox 97% ; ko1 17:00 BP 132 / 85; Pulse 88; Resp 16; Pulse Ox 98% ; ko1 18:00 BP 116 / 74; Pulse 92; Resp 16; Pulse Ox 98% ; ko1 14:24 Body Mass Index 28.32 (65.77 kg, 152.40 cm) ld1 ED Course: 14:14 Patient arrived in ED. am2 14:18 Cortney Davidson FNP is PHCP. jh7 14:18 Dwayne Rajan DO is Attending Physician. jh7 14:19 PHCP role handed off by Cortney Davidson FNP snw 14:19 Izabela Aguilar FNP-C is PHCP. snw 14:26 Triage completed. ld1 14:26 Arm band placed on right wrist. ld1 14:30 Patient has correct armband on for positive identification. Bed in low position. Call ko1 light in reach. Side rails up X 1. Client placed on continuous cardiac and pulse oximetry monitoring. NIBP monitoring applied. manager animal on. Door closed. Noise minimized. Lights dimmed. Warm blanket given. 14:31 Erica Wilder, BRANDI is Primary Nurse. ko1 14:52 Test, Serum Sent. ko1 14:52 CBC with Diff Sent. ko1 14:52 CMP Sent. ko1 14:52 Inserted saline lock: 20 gauge in right antecubital area, using aseptic technique. ko1 Blood collected. 18:19 Katlyn Luciano MD is Hospitalizing Provider. snw 18:57 SARS RAPID Sent. ko1 19:06 No provider procedures requiring assistance completed. ko1 Administered Medications: 14:52 Drug: NS 0.9% 1000 ml Route: IV; Rate: 1 bolus; Site: right antecubital; ko1 14:52 Drug: Decadron - Dexamethasone 10 mg Route: IVP; Site: right antecubital; ko1 15:38 Drug: fentaNYL (PF) 25 mcg Route: IVP; Site: right antecubital; ko1 18:04 Drug: Clindamycin 600 mg Route: IVPB; Infused Over: 30 mins; Site: right antecubital; ko1 Medication: 18:00 VIS not applicable for this client. ko1 Outcome: 18:19 Decision to Hospitalize by Provider. snw 19:06 Admitted to OR accompanied by nurse, via wheelchair, with chart. ko1 19:06 Condition: stable 19:06 Instructed on the need for admit. 19:07 Patient left the ED. ko1 Signatures: Izabela Aguilar FNP-C FNP-Csnw Zoe Ga am2 Scarlet Bryant, RN RN ld1 Cortney Davidson, INTERLIBRARY LOAN SPECIALIST INTERLIBRARY LOAN SPECIALIST jh7 Erica Wilder, RN RN ko1
[2022-10-18] MEDS ORDERED: LIDOCAINE 1% W/EPI 1:100,000 10 ML VIAL ONE (18:58)
[2022-10-18] MEDS ORDERED: BUPIVACAINE 0.25% PF 10 ML VIAL ONE (18:58)
[2022-10-18] MEDS ORDERED: Ringers Lactate 1,000 ML IV ONE (19:07)
[2022-10-18 19:14] LABS: SARS-CoV-2 Antigen Rapid Res Negative (Negative)
[2022-10-18] MEDS ORDERED: SUCCINYLCHOLINE 20 MG/ML (10 ML) IV ONE (19:18)
[2022-10-18] MEDS ORDERED: ROCURONIUM 50 MG/5 ML VIAL IV ONE (19:22)
[2022-10-18] MEDS ORDERED: MIDAZOLAM HCL 2 MG/2 ML INJ ONE (19:22)
[2022-10-18] MEDS ORDERED: propofoL 200 MG/20 ML VIAL IV ONE (19:22)
[2022-10-18] MEDS ORDERED: ONDANSETRON 4 MG/2 ML VIAL ONE (19:49)
[2022-10-18] MEDS ORDERED: KETOROLAC 30 MG/ML INJ ONE (19:49)
[2022-10-18] MEDS ORDERED: GLYCOPYRROLATE 0.2 MG/ML SYR ONE (19:52)
[2022-10-18] MEDS ORDERED: NEOSTIGMINE 1 MG/ML -10 ML VIAL ONE (19:52)
[2022-10-18] MEDS: MORPHINE 4 MG/ML SYR ONE ×4 (20:15→20:54)
[2022-10-18] MEDS: ACETAMINOPHEN 160 MG/5 ML UCUP ONE ×2 (20:58→21:00)
[2022-10-18 21:33] VITALS: TEMP 97.7
[2022-10-18 21:35] VITALS: BP 127/80; O2SAT 98
--- NOTE | 2022-10-21 20:23 | CON ---
Date of Consultation: 10/18/2022 Chief Complaint: Severe sore throat. History Of Present Illness: The patient is a 36-year-old female, who experienced a sore throat appro ximately 2 weeks ago and was placed on antibiotics, but her condition did not improve. She presents today emergently with trismus and severe throat pain that situated adjacent to the right tonsil with inability to swallow liquids or solids. She was seen by the emergency room department. A CT scan wa s performed, which demonstrated a 2.5 cm right peritonsillar abscess. I was consulted for further ev aluation and treatment. Upon arrival to bedside, patient is in no acute distress and her voice is no t muffled, but she is having difficulty opening her jaw and she reports right-sided severe throat yolie n. She denies fever, lethargy, headache, or other ENT complaints today. Past Medical History: Denies. Past Surgical History: Denies. Medications: The patient took oral antibiotics with little to no improvement. Allergies: NO KNOWN DRUG ALLERGIES. Social History: Denies tobacco, alcohol, or illicit drugs. Review of Systems: General: Negative for headache, fever, or lethargy. Eyes: Negative for drainage or blurry/double vision. Ears: Negative for otorrhea, otalgia, hearing loss, or tinnitus. Nose: Negative for rhinorrhea, nasal congestion, or postnasal drip. Throat: Positive for odynophagia, dysphagia, trismus. Neck: Negative for lymph node swelling or airway obstruction. Physical Examination: Vital Signs: Stable. Patient is awake, alert, oriented to person, place, and time. Ears: Deferred. Nose: Bilateral patent nasal cavities with midline septum. No exudate. Oral Cavity: The patient is able to distract the jaw about 1.5 cm, but then develops significant yolie n upon further distraction. Oral mucosa is moist. The patient has swollen uvula with significant ri ght soft palate swelling and erythema with slight uvular deviation to the left. Neck: Supple. No lymphadenopathy or thyromegaly palpated. Diagnostic Studies: CT scan of the soft tissue neck with contrast was reviewed and demonstrated a la rge 2.5 cm right peritonsillar abscess/fluid collection. Impression: Acute right peritonsillar abscess. Plan: 1.After discussing options, the patient will be taken to the operating room due to trismus and inabi lity to open wide enough for me to drain this at bedside. This was discussed in detail. 2.Patient will continue oral antibiotics upon discharge. KD/MODL Voice ID: [id number] Report ID: [id number]
--- NOTE | 2022-10-22 01:53 | OP ---
Date of Procedure: 10/18/2022 Surgeon: JEFF SESAY Preoperative Diagnosis: Acute right peritonsillar abscess. Postoperative Diagnosis: Acute right peritonsillar abscess. Procedure: Incision and drainage of acute right peritonsillar abscess under general anesthesia. Anesthesia: General endotracheal anesthesia was administered. I also infiltrated approximately 8 mL of 0.25% Marcaine without epinephrine at the incision site. Estimated Blood Loss: Less than 2 mL. Specimens: None. Findings: Yellow mucopurulent drainage expressed from the right peritonsillar abscess cavity. Complications: None. Disposition: Stable. The patient tolerated procedure well. Indication For Procedure: The patient is a pleasant 36-year-old female who presented to the emergenc y room with acute right peritonsillar swelling and trismus with CT scan findings demonstrating a larg e right peritonsillar abscess. These were indications to bring the patient to operative suite for th e above-mentioned procedure. She understood, all questions were answered. Risks versus benefits and complications were explained in detail and a consent form was signed, which was placed in the chart. Description Of Procedure: The patient was transferred from the preoperative holding area to the oper ative suite by Department of Anesthesia, placed on the operating table supine, sedated, intubated in normal fashion. The tube was taped to the left oral commissure. The patient was rotated 90 degrees and a shoulder roll was placed. Head and eyes were covered with s terile blue towels and moist Ray-Jacky was placed over the upper lip for protection. The McIvor retrac tor was introduced into the right oral commissure and directed along the endotracheal tube and suspen ded from the Major stand. The superior pole of the right tonsil was retracted midline with straight A llis clamps and then I utilized a needlepoint electrocautery on the setting of 20 for coagulation to dissect through the mucosa down to the abscess cavity. Once down to the abscess cavity, I immediatel y was able to express a large amount of yellow mucopurulent fluid from the abscess. Hemostasis was a chieved with suction Bovie. Saline irrigation was introduced to the oral cavity and removed with suc tion Bovie. I then infiltrated approximately 6 to 8 mL of 0.25% Marcaine without epinephrine around the incision site and then I introduced a flexible orogastric tube into the esophagus and stomach and all fluid contents were removed. She tolerated procedure well. The McIvor retractor was removed. The patient's jaw was checked and f ound to be in proper alignment. The head turban was removed and the shoulder roll was also removed. The patient was transferred back to the Department of Anesthesia in stable condition where she was s ubsequently extubated and then discharged home on oral clindamycin to take 3 times daily for 10 days and then she is going to follow up in my office in 2 weeks or sooner if needed. TAMIKA/WILFREDO Voice ID: [id number] Report ID: [id number]
== END 2022-10-18 21:20 | disposition home or self-care (01) ==
LOC: ER 14:12 → DS 19:44
PROVIDERS: ATTEND Otolaryngology Facial Plastic Surgery
PROC: 0C9PXZZ Drainage of Tonsils, External Approach (ICD-10-PCS; principal; 2022-10-18 19:00)
DX: J36 Peritonsillar abscess (principal)
CPT/HCPCS: 36415; 70491; 80053; 84703; 85025; 87811; 96374; 96375; 99285; J0330; J1100; J2250; J2405; J2704; J2710; J3010; J7030; J7120; Q9967